=== PATIENT | male | born 1960 | race Caucasian/White ===

== ENCOUNTER 2018-10-06 11:55 | Emergency (ER) | payer BC, SELFPAY ==
[2018-10-06 12:06] VITALS: BP 128/89; PULSE 66; RESP 16; TEMP 36.6; O2SAT 96
--- NOTE | 2018-10-06 12:30 | W.ED.GENAD ---
Discharge Plan Disposition Patient Disposition: HOME Discharge Details Chief Complaint: Laceration Clinical Impression: Laceration of finger, index Primary Care Provider: Naga Guzman ED Provider: King Valdivia Home Meds and New Rx's Prescriptions: No Action No Known Home Meds RF: 0 Discharge Instructions Instructions: Finger Laceration (ED) Additional Instructions: Keep finger splint on for 5 days. Avoid getting the wound dirty or contaminated. Return to the emergency department should bleeding persist Referrals: Naga Guzman DO [Primary Care Provider] - 1 week Medical Decision Making This is a nontoxic-appearing 58-year-old male who presents with a uncomplicated left second digit laceration. Wound is well approximated and somewhat superficial. No wound dehiscence with flexion extension at the DIP joint. Area cleaned and covered with dry sterile dressing and bacitracin. Splint applied to immobilize the DIP joint. Discussed return precautions. Wound care discussed. He is stable and ready for discharge at this time HPI General Date/Time Provider Initiated Documentation: 10/06/18 12:19. HPI Narrative: Patient presents to the emergency department with a left index finger laceration with a carpet knife. Neurovascularly intact distal to the site of injury. Tetanus is unknown Related Data Home Medications Medication Instructions Recorded Confirmed Unknown [No Known Home Meds] 10/06/18 10/06/18 Allergies Allergy/AdvReac Type Severity Reaction Status Date / Time No Known Allergies Allergy Unverified 10/06/18 12:06 General Stated Complaint: Laceration ALVERTO: 4 Review of Systems Musculoskeletal Denies limited range of motion, Denies numbness, Denies radiating pain into limb, Denies stiffness and Denies tingling Neurologic Denies numbness and Denies tingling Hematologic/Lymphatic Denies easy bleeding and Denies easy bruising [facility] Family History Mother No problems noted. Social History Smoking/Tobacco Use Status: Former Tobacco Use Drug use: Never Do you feel safe at home: Yes Do you feel safe in your relationship?: Yes Exam Narrative Exam Narrative: Nontoxic-appearing alert and oriented. Appears stated age. No outward signs of distress. Examination of the left index finger reveals a linear laceration roughly 1.5 cm in length with adequate wound approximation over the distal of the second digit of the left hand. Neurovascularly intact distal to the site of injury. Full range of motion at the DIP joint. Course Vital Signs Temperature 36.6 C 10/06/18 12:06 Pulse 66 10/06/18 12:06 Respiratory Rate 16 10/06/18 12:06 Blood Pressure 128/89 10/06/18 12:06 Pulse Oximetry 96 10/06/18 12:06 Temperature 36.6 C 10/06/18 12:06 Temperature Source Temporal Artery Scan 10/06/18 12:06 Pulse 66 10/06/18 12:06 Respiratory Rate 16 10/06/18 12:06 Respiratory Effort Non-Labored 10/06/18 12:11 Blood Pressure 128/89 10/06/18 12:06 Blood Pressure Position Sitting 10/06/18 12:06 Pulse Oximetry 96 10/06/18 12:06 Oxygen Delivery Method Room Air 10/06/18 12:06 Oxygen Flow Rate 0 10/06/18 12:06 Pain Level 3 10/06/18 12:06
== END 2018-10-06 12:49 | disposition home or self-care (01) ==
PROVIDERS: Emergency Provider Physician Assistant; PCP Family Medicine
DX: S65.511A Laceration of blood vessel of left index finger, initial encounter (principal); W26.0XXA Contact with knife, initial encounter
CPT/HCPCS: 90471; 99282

== ENCOUNTER 2020-01-27 08:28 | Outpatient (REF) | payer BC, SELFPAY ==
[2020-01-27 22:58] LABS: ALT 25 U/L (16-63); AST 17 U/L (15-37); Albumin 4.1 g/dL (3.4-5.0); Alkaline Phosphatase 65 U/L (46-116); BUN 16 mg/dL (7-18); Bilirubin, Total 0.4 mg/dL (0.2-1.0); CREATININE 0.86 mg/dL (0.70-1.30); Calcium 9.2 mg/dL (8.5-10.1); Calculated LDL 120 mg/dL (<100); Chloride 103 mmol/L (98-107); Cholesterol 216 mg/dL (<200); Glucose 90 mg/dL (74-106); HDL Cholesterol 85 mg/dL (40-60); Sodium 138 mmol/L (136-145); Total Protein 6.9 g/dL (6.4-8.2); Triglyceride 57 mg/dL (<150)
[2020-01-29 16:13] LABS: PSA, Screening 1.4 ng/mL (0-4.5)
== END 2020-01-27 08:48 ==
LOC: NCHCN 08:28
PROVIDERS: Visit Provider Family Medicine
DX: Z00.00 Encounter for general adult medical examination without abnormal findings (principal)
CPT/HCPCS: 80053; 80061; 84153

== ENCOUNTER 2020-04-14 02:32 | Outpatient (CLI) | payer BC, SELFPAY ==
[2020-04-15 13:41] LABS: COVID-19 RT-PCR UVMMC Result Negative (Negative)
== END 2020-04-14 02:52 ==
PROVIDERS: PCP Family Medicine; Visit Provider Surgery
DX: Z11.52 Encounter for screening for COVID-19 (principal); Z01.818 Encounter for other preprocedural examination
CPT/HCPCS: U0003

== ENCOUNTER 2020-04-18 06:05 | Day surgery (SDC) | payer BC, SELFPAY ==
[2020-04-18 06:20] VITALS: BP 130/80; PULSE 51; RESP 16; TEMP 36.3; O2SAT 98
--- NOTE | 2020-04-18 06:31 | COLE_ITS ---
Date of service: 04/18/20 Time of Service: 07:24 Colonoscopy Report Date of procedure: 04/18/20 Pre-op diagnosis general: Colon Cancer Screening Procedure: Colonoscopy and internal hemorrhoids Surgeon: Dolly Augustine Anesthesia proc note operative: other (General/ASA 2/Mike Trejo, EMMY) Estimated blood loss (mL): 3 Pathology: none sent Complications: None Disposition: same day Indications: The patient is here for Colonoscopy pre-op. His last screening was in 2010 and was unremarkable. He has no family history of colon cancer. He has not had any bowel habit changes. 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 He would like this further evaluated during his Colonoscopy and to discuss possible treatment options. Today discussed medical management of anal fissures. -Discussed colonoscopy bowel prep as well as the procedure. Discussed possible complications of the procedure to include bleeding, pain, perforation, missed small lesion/polyp, sore throat, aspiration and adverse reaction to the medications. Questions were answered to patient?s satisfaction. No guarantees were implied or given. Prep: Miralax/Dulcolax Procedure Start Time: :24 Procedure End Time: :48 Retraction Time: 12 minutes Findings: Internal hemorrhoids grade 2 Procedure Description: After informed consent was obtained the patient was taken to the procedure room and placed in a left decubitous position. Monitors were applied and a time out was done. The patients name, date of , procedure, allergies to medications and metal in their body was reviewed. The patient was then sedated. Once sedated and comfortable a rectal exam was done. External exam was normal. Internal exam revealed a normal sphincter tone and no palpable masses. The prostate felt smooth and slightly enlarged. The scope was then introduced and retro-flexed. Grade 2 internal hemorrhoids, polyps or masses were identified on retro-flexion. The scope was then advanced to the cecum without difficulty. The ileocecal valve and appendiceal orifice were identified. The prep was good. The scope was then slowly retracted over 12 minutes back into the rectum. There were no polyps. There was no diverticulosis noted. The scope was removed. A lighted scope was placed into t he anus and 3 Grade 2 internal hemorrhoids were banded without difficulty. Once the banding was done the patient was woken up and taken back to Same day surgery in stable condition. The patient tolerated the procedure well and there were no immediate complications. Follow up: The patient should follow up in 10 years unless they develop changes in bowel habits or other new gastrointestinal complaints. Follow up in 2 weeks in the office for the banding
--- NOTE | 2020-04-18 06:32 | W.PM.DSUDISC ---
Discharge Plan Disposition Patient Disposition: HOME Condition: Good Discharge Details Reason For Visit: Colon Cancer Screening Attending Provider: Dolly Augustine Primary Care Provider: Ashtyn Watson Home Meds and New Rx's Prescriptions: New lidocaine [Anecream] 4 % cream 1 applic topical QID PRNQty: 30 RF: 1 polyethylene glycol 3350 [Miralax] 17 gram/dose powder 17 g PO DAILY PRN (Reason: constipation) Qty: 238 RF: 0 Continued saw palmetto 500 mg capsule 500 mg PO DAILY RF: 0 turmeric root extract 500 mg capsule 500 mg PO DAILY RF: 0 loteprednol etabonate [Lotemax] 0.5 % drops,suspension 1 drp ophthalmic (eye) BID RF: 0 Discontinued polyethylene glycol 3350 17 gram/dose powder 238 g PO ONCE Qty: 238 RF: 0 bisacodyl [Dulcolax (bisacodyl)] 5 mg tablet,delayed release (DR/EC) 5 mg PO ONCE Qty: 4 RF: 0 Discharge Instructions Instructions: Hemorrhoids (DC), Rubber Band Ligation (DC), Sitz Bath (DC) Additional Instructions: Findings: internal hemorrhoids- 3 of them were banded today No polyps Follow up: 2 weeks in the office to follow up on the banding 10 years for your next colonoscopy Medications: Please use a stool softener for 1 week Lidocaine ointment was called in to help with any discomfort Sitz baths and tylenol and ibuprofen Please call if you develop: fevers >101.5 Nausea or Vomiting Abdominal pain that is not transient DAY SURGERY UNIT POST ENDOSCOPY INSTRUCTIONS 1. Because there will be medication in your system for the next 24 hours, you may feel a little sleepy. Your coordination will be affected. Therefore: a. Do not drive or operate dangerous equipment for 24 hours. b. Do not drink alcohol beverages for 24 hours (not even beer). c. Plan to go home and rest for the day. 2. Generally there are no restrictions on your activity after a day or so has gone by, but you may feel a bit fatigued for a few days. 3 After you arrive home you may have a light meal and return to a normal diet as you can tolerate it without feeling sick to your stomach. 4. After surgery, you may feel pain or discomfort. This should be only transient, but if it persists please contact your doctor. 5. If there are any questions regarding the findings of your procedure, please feel free to contact your doctor. 6. If you are unable to contact your doctor with a problem, contact the hospital at [phone]. 7. Continue all your regular medications unless directed otherwise. I understand the above instructions and have no questions. Signature of Patient or Responsible Adult Escort Date/Time Name of Responsible Adult Escort Signature of Nurse Date/Time Referrals: Dolly Augustine MD [ [facility] STAFF PHYSICIAN] - Activity:: Activity as Tolerated Diet:: High Fiber Discharge Orders Discharge Orders: Discharge Order (Routine); Ordered 04/18/20 Ordered By: Dolly Augustine
[2020-04-18] MEDS: Lactated Ringers 1,000 ML 80 ML IV (06:50)
[2020-04-18 08:32] VITALS: BP 83/45; PULSE 45; RESP 16; TEMP 36.1; O2SAT 97
== END 2020-04-18 08:55 | disposition home or self-care (01) ==
PROVIDERS: PCP Family Medicine; Visit Provider Surgery
PROC: 0DJD8ZZ Inspection of Lower Intestinal Tract, Via Natural or Artificial Opening Endoscopic (ICD-10-PCS; CPT 45378; principal; 2020-04-18 07:30)
DX: Z12.11 Encounter for screening for malignant neoplasm of colon (principal); K64.1 Second degree hemorrhoids
CPT/HCPCS: 45398; J2704

== ENCOUNTER 2020-06-18 11:03 | Emergency (ER) | payer BC, SELFPAY ==
[2020-06-18 11:11] VITALS: BP 155/95; PULSE 61; RESP 16; TEMP 36.4; O2SAT 98
--- NOTE | 2020-06-18 11:28 | W.ED.GENAD ---
Discharge Plan Disposition Patient Disposition: HOME Condition: Improving Discharge Details Clinical Impression: Subconjunctival hemorrhage of right eye Primary Care Provider: Ashtyn Watson ED Provider: Blaine Mercedes Home Meds and New Rx's Prescriptions: Continued saw palmetto 500 mg capsule 500 mg PO DAILY RF: 0 turmeric root extract 500 mg capsule 500 mg PO DAILY RF: 0 loteprednol etabonate [Lotemax] 0.5 % drops,suspension 1 drp ophthalmic (eye) BID RF: 0 lidocaine [Anecream] 4 % cream 1 applic topical QID PRNQty: 30 RF: 1 polyethylene glycol 3350 [Miralax] 17 gram/dose powder 17 g PO DAILY PRN (Reason: constipation) Qty: 238 RF: 0 Discharge Instructions Instructions: Subconjunctival Hemorrhage (ED) Additional Instructions: May use artificial tears as needed for comfort. You have some mild chemosis of the eye which can be somewhat irritating and will benefit from oemt-wjm-kzkmmff antihistamine such as Claritin or Benadryl. We will ask our care management team to arrange a follow-up for you with Dr. Lamar this week for recheck. Cool compress to reduce discomfort Continue your regular medications. Return to the ER for any acute concerns. Medical Decision Making 59-year-old male who presents with right inferotemporal eye subconjunctival hemorrhage. He has a distant history of herpes ophthalmicus for which she follows closely with ophthalmology and continues to take daily steroid drops and atenolol. VA: 20/70 R, No evidence of foreign body, negative Johanna sign. Consistent with some conjunctival hemorrhage. Will ask animal care service worker to arrange a follow-up for him given his chronic eye difficulties. He may use [id number]-[id number] antihistamine given there is some chemosis, anticipate 7 to 14 days to resolution, use artificial tears as needed for comfort. HPI General Mode of arrival: ambulatory. Date/Time Provider Initiated Documentation: 06/18/20 11:04. Limitations to Documentation: no limitations. Information obtained by: patient. History of Present Illness 59 year old M presents to the emergency department with the chief complaint of Right subconjunctival hemorrhage, described as mild, Quality is described as constant, and is localized to the eyes and right. Patient reports no radiation. Patient started experiencing this minute(s) and it has been constant. No relieving factors improve symptom(s), No exacerbating factors reported . Patient notes denies headaches and nausea/vomiting. Patient did receive the following treatments prior to arrival, none Related Data Home Medications Medication Instructions Recorded Confirmed loteprednol etabonate 0.5 % eye 1 drp OPHTHALMIC (EYE) BID 02/24/20 04/18/20 drops,suspension saw palmetto 500 mg capsule 500 mg PO DAILY cap 04/01/20 04/18/20 turmeric root extract 500 mg 500 mg PO DAILY 04/01/20 04/18/20 capsule lidocaine [Anecream] 1 applic TOPICAL QID PRN #30 g 04/18/20 polyethylene glycol 3350 [Miralax] 17 g PO DAILY PRN #238 g 04/18/20 Previous Rx's Medication Instructions Recorded lidocaine [Anecream] 1 applic TOPICAL QID PRN #30 g 04/18/20 polyethylene glycol 3350 [Miralax] 17 g PO DAILY PRN #238 g 04/18/20 Allergies Allergy/AdvReac Type Severity Reaction Status Date / Time No Known Allergies Allergy Verified 06/18/20 11:13 General Stated Complaint: EyeProblem ALVERTO: 4 Review of Systems Narrative: No headache or vomiting. 6 systems reviewed and otherwise negative. No anticoagulants. 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 ([facility], [place], [place]) History of smoking 10-25 pack years Hyperplastic colon polyp Rectal bleeding Systolic murmur (01/26/14) Surgical History H/O hemorrhoidectomy (~04/18/20) Hemorrhoid banding x2 at time of colonoscopy History of mandibular surgery History of wisdom tooth extraction Hx of tonsillectomy S/P colonoscopy (~04/18/20) Family History Mother No problems noted. Father , from complications of emphysema Emphysema/COPD Brother No problems noted. Brother No problems noted. Social History (Updated 04/01/20 @ 11:23 by DIANA Edwards) Smoking/Tobacco Use Status: Current every day Tobacco Type: cigars Tobacco: How many years used: 25 Smoking risk assessment performed?: Yes Alcohol Intake: current Alcohol Intake frequency: a few times a week Drug use: Occasionally Substance use type: marijuana Adopted: No Household members: spouse Number of Children: 0 Communication Needs: None current occupation: [employer] Pets and animals: Yes Pets and animals: dog(s) Current gender identity: male What is your relationship status?: Panel score (0-1 are the most socially isolated patients): 1 What type of physical activity do you participate in: regular exercise Duration: 45-60 minutes/day Seatbelt use: always Drive intox or ride w/intox milk driver: No Working smoke detector in home: Yes Fire extinguisher in home: Yes Carbon monox detector in home: Yes Do you feel safe at home: Yes Do you feel safe in your relationship?: Yes Exam Narrative Exam Narrative: GEN: awake, alert, oriented 3. Pleasant, well groomed, interactive. HEAD: Normocephalic, atraumatic ENT: Mucous membranes moist, oropharynx unremarkable, External ear exam unremarkable EYES: PERRL, EOMI, right subconjunctiva hemorrhage with overlying chemosis inferotemporal. There is a scarlike plaque of the right eye inferonasal. Negative Johanna sign. No foreign body appreciated. Globe soft to palpation. NECK: Full ROM, no JUANA, no menigismus CHEST/RESP: No respiratory distress Neuro: Grossly normal neurologic exam, conversant, interactive. Psych: Speech fluent, thoughts congruent, affect normal Course Vital Signs Vital signs: Vital Signs Temperature 36.4 C 06/18/20 11:11 Pulse 61 06/18/20 11:11 Respiratory Rate 16 06/18/20 11:11 Blood Pressure 155/95 H 06/18/20 11:11 Pulse Oximetry 98 06/18/20 11:11 Temperature 36.4 C 06/18/20 11:11 Temperature Source Oral 06/18/20 11:11 Pulse 61 06/18/20 11:11 Respiratory Rate 16 04/03/21 11:11 Respiratory Effort 06/18/20 11:13 Blood Pressure 155/95 H 06/18/20 11:11 Blood Pressure Position Sitting 06/18/20 11:11 Pulse Oximetry 98 06/18/20 11:11 Oxygen Delivery Method Room Air 06/18/20 11:11 Oxygen Flow Rate 0 06/18/20 11:11 Pain Level 6 06/18/20 11:11
[2020-06-18] MEDS: Balanced Salt Solution 15 ML BTL OP (11:46)
[2020-06-18] MEDS: Fluorescein STRIPS 100/BOX 1 MG OP (11:47)
--- NOTE | 2020-06-18 12:54 | NUR.NOTE ---
Nursing Note: Referral faxed to [facility] (Dr. Lamar) for follow up within one week for subconjunctival hemorrhage. Demographics, referral and provider note faxed. Mamie Padilla
== END 2020-06-18 11:48 | disposition home or self-care (01) ==
PROVIDERS: Emergency Provider Emergency Medicine; PCP Family Medicine
DX: H11.31 Conjunctival hemorrhage, right eye (principal)
CPT/HCPCS: 99283; 99282

== ENCOUNTER 2020-11-29 17:43 | Outpatient (REF) | payer BC, SELFPAY ==
[2020-12-01 20:00] LABS: COVID-19 RT-PCR UVMMC Result Negative (Negative)
== END 2020-11-29 17:44 | disposition home or self-care (01) ==
LOC: NCHCN 17:43
PROVIDERS: PCP Family Medicine; Visit Provider Family Medicine
DX: Z20.822 Contact with and (suspected) exposure to COVID-19 (principal)
CPT/HCPCS: U0003

== ENCOUNTER 2020-12-05 01:28 | Outpatient (CLI) | payer BC, SELFPAY ==
--- NOTE | 2020-12-05 08:30 | DI.CT_ITS ---
Exam(s) CT NECK W EXAM: CT NECK W CLINICAL HISTORY: mass on the right side of the neck,? lipoma,m79.89. TECHNIQUE: Imaging Protocol: Axial CT angiography was performed with multi-slice acquisition and mu lti-planar and/or 3D reconstructions. CONTRAST MATERIAL: Intravenous: Omnipaque 350 Contrast volume:80 mL COMPARISON: No exams were available for comparison FINDINGS: Visualized paranasal sinuses are clear as are the mastoid air cells. Tissues nasopharynx are symmetrical. Uvula is midline. There is no obvious mass at the level of the tonsils and oropharynx. Hypopharynx appears unremarkable. Valleculae unremarkable. Epiglottis unr emarkable. Aryepiglottic folds appear symmetrical. There is no mass at the level of the vocal cords and subglottic airway. Thyroid unremarkable. Parotid and submandibular glands appear on remarkable. Lymph nodes: No obvious prominent lymphadenopathy on either side of the neck. Vascular: No obvious tight stenosis at the carotid bifurcations and proximal internal carotid arterie s. No thrombosis of the internal jugular veins. Supraclavicular regions: No mass nor lymphadenopathy in left supraclavicular region. On the right side there is a large fat density mass in the supraclavicular region and extending behin d the neck, measuring approximately 9 cm AP by 4 cm wide by 8 cm craniocaudal. This has the appearan ce of a large lipoma. Contains thin septae A. No large mural nodules. No osseous destruction. IMPRESSION: 1. There is a large predominantly fatty mass in the right supraclavicular region measurements as desc ribed above. This is predominantly intermuscular and relatively well-defined. Nevertheless, despite the fact that it does not assess obvious solid components, cannot exclude the possibility of liposar coma given its large size and surgical consultation is recommended for biopsy/resection. RADIATION DOSE DELIVERED: 450.95mGy.cm Total DLP DATA REPOSITORY: All CT scans at this facility are submitted to the National Radiology Data Registry (NRDR) Dose Index Registry (DIR) with the [employer] (ACR). RADIATION OPTIMIZATION: All CT scans at this facility use at least one of these dose optimization te chniques: automated exposure control; mA and/or kV adjustment per patient size (includes targeted exa ms where dose is matched to clinical indication); or iterative reconstruction.
[2020-12-05 11:20] LABS: CREATININE 0.8 mg/dL (0.70-1.30)
[2020-12-05] MEDS: Omnipaque 350 MG/ML 100 ML BTL IJ (11:50)
[2020-12-05] MEDS: Normal Saline Flush 10 ML SYR IVP (11:51)
== END 2020-12-05 01:48 ==
PROVIDERS: PCP Family Medicine; Visit Provider Surgery
DX: R22.1 Localized swelling, mass and lump, neck (principal); M79.89 Other specified soft tissue disorders; Z01.818 Encounter for other preprocedural examination
CPT/HCPCS: 70491; 82565; J3490

== ENCOUNTER 2021-01-03 02:27 | Outpatient (CLI) | payer BC, SELFPAY ==
[2021-01-03 10:14] LABS: Source Nasal/Nares
[2021-01-03 13:55] LABS: COVID-19 PCR Negative (Negative)
== END 2021-01-03 02:28 | disposition home or self-care (01) ==
LOC: LBO 02:27
PROVIDERS: PCP Family Medicine; Visit Provider Surgery
DX: Z20.822 Contact with and (suspected) exposure to COVID-19 (principal); Z01.818 Encounter for other preprocedural examination
CPT/HCPCS: 87635

== ENCOUNTER 2021-01-04 08:24 | Day surgery (SDC) | payer BC, SELFPAY ==
[2021-01-04] VITALS (7 sets, daily range): BP systolic 85–140; BP diastolic 49–91; PULSE 47–65; RESP 12–18; TEMP 36–36.4; O2SAT 95–100; BMI 26.9
--- NOTE | 2021-01-04 06:34 | HPE_ITS ---
Date of service: 01/04/21 Time of Service: 09:06 Assessment and Plan Assessment and plan (1) Lipoma: Status: Acute Assessment and plan: Right neck soft tissue mass. MRI was consistent with lipoma Risks, benefits were reviewed. Complications include but are not limited to bleeding, pain, infection, injury to muscles, nerves or vessels, wound dehisence and recurrence. Questions were entertained and answered to his satisfaction and he wished to proceed. No guarantees were given or implied. Qualifiers: Lipoma location: neck Qualified Code(s): D17.0 - Benign lipomatous neoplasm of skin and subcutaneous tissue of head, face and neck History of Present Illness Narrative: Nestor is back to see me today for a lesion on his right neck. He tells me that he really had not noticed it until Dr. Davis pointed it out. It does not cause him any pain. He does feel that there is an abnormality when he tries to wear a tie. He has no decrease of range of motion in his neck. He denies any swallowing issues. MRI was done and was consistent with lipoma. Review of Systems Cardiovascular Cardiovascular: Denies chest pain, Denies chest pain at rest, Denies irregular heart rhythm, Denies dyspnea and Denies dyspnea on exertion Respiratory Respiratory: Denies cough, Denies dyspnea and Denies dyspnea on exertion Gastrointestinal Gastrointestinal: Reports as per HPI Genitourinary Genitourinary: Denies dysuria, Denies urinary incontinence and Denies urinary urgency Musculoskeletal Musculoskeletal: Reports system reviewed and no additional complaints, except as documented and Reports as per HPI Endocrine Endocrine: Reports system reviewed and no additional complaints, except as documented Hematologic/Lymphatic Hematologic/Lymphatic: Denies easy bruising and Denies lymphadenopathy [facility] Medical History Vcsap-3-fkusydjskme 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 ([facility], [place], [place]) History of smoking 10-25 pack years Hyperplastic colon polyp Lipoma Rectal bleeding Sebaceous cyst Systolic murmur (01/26/14) Surgical History H/O hemorrhoidectomy (~04/18/20) Hemorrhoid banding x2 at time of colonoscopy History of mandibular surgery History of wisdom tooth extraction Hx of tonsillectomy S/P colonoscopy (~04/18/20) Family History Mother No problems noted. Father , from complications of emphysema Emphysema/COPD Brother No problems noted. Brother No problems noted. Social History Smoking/Tobacco Use Status: Current every day Tobacco Type: cigars Tobacco: How many years used: 25 Smoking risk assessment performed?: Yes Alcohol Intake: current Alcohol Intake frequency: a few times a week Drug use: Occasionally Substance use type: marijuana Adopted: No Household members: spouse Number of Children: 0 Communication Needs: None current occupation: [employer] Pets and animals: Yes Pets and animals: dog(s) Current gender identity: male What is your relationship status?: Panel score (0-1 are the most socially isolated patients): 1 What type of physical activity do you participate in: regular exercise Duration: 45-60 minutes/day Seatbelt use: always Drive intox or ride w/intox ambulance driver paramedic: No Working smoke detector in home: Yes Fire extinguisher in home: Yes Carbon monox detector in home: Yes Do you feel safe at home: Yes Additional Social history: Unable to assess [facility] Allergies and Home Medications Allergies Allergy/AdvReac Type Severity Reaction Status Date / Time No Known Allergies Allergy Verified 01/04/21 08:38 Home Medications Medication Instructions Recorded Confirmed Type loteprednol etabonate 0.5 % eye 1 drp OPHTHALMIC (EYE) BID 02/24/20 01/04/21 History drops,suspension brimonidine 0.1 % eye drops 1 drp OPHTHALMIC (EYE) Q8H 11/04/20 01/04/21 History dorzolamide-timolol (PF) 2 %-0.5 % 1 drp OPHTHALMIC (EYE) DAILY ea 11/04/20 01/04/21 History eye drops in a dropperette valacyclovir 500 mg tablet 500 mg PO BID 11/04/20 01/04/21 History Exam Const General: healthy appearing and comfortable Neck Other: Right base of the neck- there is a 10 x 8 cm soft mass. I can feel the edge of it in the back but not the from. It looks like it goes up to the clavicle and up half way to his mandible. It is not tender Resp Effort & Inspection: normal respiratory effort Auscultation: clear to auscultation bilaterally Cardio Rate: regular rate Rhythm: regular rhythm Heart Sounds: no click, no gallops and no murmurs
--- NOTE | 2021-01-04 06:41 | ROE_ITS ---
Date of service: 01/04/21 Time of Service: 11:23 Operative Note Operative Note DATE OF PROCEDURE: 01/04/21 PRE-OP DIAGNOSIS: Right neck lipoma POST-OP DIAGNOSIS: same PROCEDURE: Excision of neck lipoma SURGEON: Dolly Augustine FIRER WATERTENDER: Jeny Brown ANESTHESIA TYPE: General:No Airway (Julita Elliott CRNA) Refer to Anesthesia Record ESTIMATED BLOOD LOSS: 25 PATHOLOGY: other (lipoma) COMPLICATIONS: None Patient was transported to: PACU Patient's condition: stable Indications: Right neck soft tissue mass. MRI was consistent with lipoma Risks, benefits were reviewed. Complications include but are not limited to bleeding, pain, infection, injury to muscles, nerves or vessels, wound dehisence and recurrence. Questions were entertained and answered to his satisfaction and he wished to proceed. No guarantees were given or implied. Procedure Description: After informed consent was obtained the patient was taken to the Operating room and placed in a supine position. Monitors were applied and a time out was done. The patients name, , allergies to medications, antibiotic prophilaxis, DVT prophilaxis, procedure to be done and site were reviewed. Fire risk was assessed. The patient was then placed under general anesthesia and intubated without difficulty. Next the right shoulder, neck and chest wall were prepped and draped in a standard fashion. 0.25% Bupivocaine mixed with Exparel was injected into the dermis over the palpable lipoma. The incision was made with a 15 blade. The lipoma was then dissected bluntly inferiorly. The inferior portion of the lipoma was pulled out of the incision without difficulty. Using cautery and blunt dissection the superior portion was dissected as well as the medial end. The lipoma was attached posteriorly behind the posterior head of the sternocleidomastoid muscle. Using blunt dissection and sharp dissection with iris scissors it was gently dissected from under the muscle. Once dissected all the way it was marked with a single suture inferiorly and with a double suture medially. The lipoma measured 12 x 8 cm. The cavity was irrigated. There was some small amount of bleeding and this was stopped with cautery and vascular clips. Once the cavity was dry floseal was placed into the cavity to help with hemostasis. Next the subcutaneous tissue was re-approximated with interrupted 2-0 vicryl. The Dermis was closed with a running 4-0 vicryl. The skin was cleaned and dried and a skin affix was applied. The patient was woken up and extubated. He was taken to PACU in stable condition. Instrument, sponge and needle counts were correct at the end of the case. The patient did well and there were no immediate complications.
--- NOTE | 2021-01-04 06:43 | W.PM.DSUDISC ---
Discharge Plan Disposition Patient Disposition: HOME Condition: Good Discharge Details Reason For Visit: excision of lipoma Attending Provider: Dolly Augustine Primary Care Provider: Ashtyn Watson Home Meds and New Rx's Prescriptions: Continued loteprednol etabonate [Lotemax] 0.5 % drops,suspension 1 drp ophthalmic (eye) BID RF: 0 valacyclovir 500 mg tablet 500 mg PO BID RF: 0 Alphagan P 0.1 % drops 1 drp ophthalmic (eye) Q8H RF: 0 dorzolamide-timolol (PF) 2-0.5 % dropperette 1 drp ophthalmic (eye) DAILY RF: 0 Discharge Instructions Additional Instructions: Activity at Home after surgery: 1. Make sure you walk outside at least 4 times per day 2. You should be able to climb a flight of stairs 3. No driving while in pain or taking pain medications 4. No strenuous activity 4 weeks (open surgery) Diet, Nutrition, & wound healin. Avoid alcohol until after you are recovered from your surgery 2. Make sure to eat plenty of lean protein (meat, fish, eggs, cottage cheese, beans) 3. Eat a variety of fruits and vegetables. Eat plenty of high fiber foods to avoid constipation. 4. Drink plenty of liquids to stay hydrated and avoid constipation Pain Medications: 1. Tylenol 650mg every 6 hours as needed and Ibuprofen 600 mg every 6 hours as needed. You may alternate between the 2 medications every 3 hours 2. If a narcotic has been prescribed take as directed only for breakthrough pain For Constipation: 1. Take Milk of Magnesia or MiraLax as needed for constipation Other: 1. You may shower daily. Do not scrub the incisions 2. Do not soak the incisions for 1 week 3. You may alternate ice and heat as needed for pain and swelling Wound Care: 1. Keep the incisions clean and dry Please call our office if you develop: 1. Fevers >101.5 2. Nausea or Vomiting 3. Worsening pain 4. Redness and thick discharge from the wounds If after hours please call the Hospital at and ask to speak to the on-call surgeon Referrals: Dolly Augustine MD [ [facility] STAFF PHYSICIAN] - 01/17/21 8:30 am Activity:: Activity as Tolerated Remove Dressings/Wound Care:: Do Not Remove Shower/Bathe:: 24 hours Diet:: As Tolerated Discharge Orders Discharge Orders: Discharge Order (Routine); Ordered 01/04/21 Ordered By: Dolly Augustine DS: Diagnosis Discharge Diagnosis (1) Lipoma: Status: Acute
[2021-01-04] MEDS: Lactated Ringers 1,000 ML 80 ML IV (08:55)
[2021-01-04] MEDS: Celecoxib 200 MG CAP PO (09:34)
[2021-01-04] MEDS: Acetaminophen 500 MG TAB 1000 MG PO (09:35)
--- NOTE | 2021-01-04 10:13 | W.ANESPRE ---
General Info Date of Service Date Performed: 01/04/21 Height: 5 ft 11 in Weight: 87.5 kg Body Mass Index (BMI): 26.9 Surgical Procedure: Operation Date: 01/04/21 11:25 Proposed Procedures Side Surgeon p Excision Lipoma RT SUPRACLAVICULAR Right Dolly Augustine MD Meds Allergies and Home Medications Allergies Allergy/AdvReac Type Severity Reaction Status Date / Time No Known Allergies Allergy Verified 01/04/21 08:38 Home Medication Medication Instructions Recorded loteprednol etabonate 0.5 % eye 1 drp OPHTHALMIC (EYE) BID 02/24/20 drops,suspension brimonidine 0.1 % eye drops 1 drp OPHTHALMIC (EYE) Q8H 11/04/20 dorzolamide-timolol (PF) 2 %-0.5 % 1 drp OPHTHALMIC (EYE) DAILY ea 11/04/20 eye drops in a dropperette valacyclovir 500 mg tablet 500 mg PO BID 11/04/20 Current Visit Medications: Current Medications Generic Name Dose Route Start Last Admin Trade Name Freq PRN Reason Stop Dose Admin Acetaminophen 1,000 mg 01/04/21 06:00 01/04/21 09:35 Acetaminophen 500 Mg Tab PO 02/02/21 23:59 1,000 mg PREOP ELLEN Administration Celecoxib 200 mg 01/04/21 06:00 01/04/21 09:34 Celecoxib 200 Mg Cap PO 02/02/21 23:59 200 mg PREOP ELLEN Administration Ringer's Solution 1,000 mls @ 80 mls/hr 01/04/21 06:00 01/04/21 08:55 IV 02/02/21 23:59 80 mls/hr INFUSION ELLEN Administration Cefazolin Sodium/Dextrose 2 gm in 50 mls @ 100 mls/hr 01/04/21 06:00 Ancef Duplex IVPB 02/02/21 23:59 PREOP ELLEN Ondansetron HCl 4 mg/ Sodium 52 mls @ 200 mls/hr 01/04/21 06:44 Chloride IVPB Q6H PRN PRN Promethazine HCl 12.5 mg/ 50.5 mls @ 200 mls/hr 01/04/21 06:44 Sodium Chloride IVPB Q4H PRN PRN IV Miscellaneous Supplies 1 each 01/04/21 06:00 Iv Access IV 02/02/21 23:59 DIRECTED ELLEN Ibuprofen 600 mg 01/04/21 06:44 Ibuprofen 600 Mg Tab PO Q6H PRN PRN Pain Sodium Chloride 0 ml 01/04/21 06:00 Normal Saline Flush 10 Ml Syr IV 02/02/21 23:59 PRN PRN Sodium Chloride 0 ml 01/04/21 06:00 Normal Saline 10 Ml Vial IJ 02/02/21 23:59 DIRECTED PRN Sterile Water 0 ml 01/04/21 06:00 Water,Injection,Sterile 10 Ml Vial IJ 02/02/21 23:59 DIRECTED PRN Tramadol HCl 50 mg 01/04/21 06:44 Tramadol 50 Mg Tab PO Q6H PRN PRN Pain PFSH Active Problems Active Problems: Problem Status Onset Code Lipoma D17.9 Subconjunctival hemorrhage of right eye H11.31 Osteoarthritis of left knee M17.12 History of smoking 10-25 pack years Z87.891 BPH loc w urin obs/LUTS N40.1 Medical History Medical History 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 ([facility], [place], [place]) History of smoking 10-25 pack years Hyperplastic colon polyp Lipoma Rectal bleeding Sebaceous cyst Systolic murmur (01/26/14) Surgical History Surgical History H/O hemorrhoidectomy (~04/18/20) Hemorrhoid banding x2 at time of colonoscopy History of mandibular surgery History of wisdom tooth extraction Hx of tonsillectomy S/P colonoscopy (~04/18/20) Tobacco Smoking/Tobacco Use Status: Current every day Tobacco Type: cigars Tobacco: How many years used: 25 Alcohol Alcohol Intake: current Alcohol intake frequency: a few times a week Substance Use Substance use: Occasionally Substance use type: marijuana Vital Signs and Lab Results Vital Signs Most Recent Vital Signs in EMR: Most Recent Vital Signs Temp Pulse Resp BP Pulse Ox 36.2 C L 65 18 140/91 H 99 01/04/21 08:25 01/04/21 08:25 01/04/21 08:25 01/04/21 08:25 01/04/21 08:25 Lab Results Blood Type / Crossmatch: No Data to Display Complete Blood Count: No Data to Display Complete Metabolic Panel: No Data to Display Liver Function Panel: No Data to Display Coagulation Panel: No Data to Display Cardiac Panel: No Data to Display Arterial Blood Gas: No Data to Display Venous Blood Gas: No Data to Display Pancreas Panel: No Data to Display Thyroid Panel: No Data to Display Infectious Disease: Coronavirus (COVID-19)(PCR) Negative (Negative) 01/03/21 08:31 01/03/21 Coronavirus 2019 Source Nasal/Nares 01/03/21 08:31 01/03/21 Blood Cultures: No Data to Display Toxicology Panel: No Data to Display Imaging and Studies Imaging and Studies Echocardiogram Summary: FINDINGS: LEFT VENTRICLE/LVEF: Left ventricle normal size and wall thickness. Normal systolic function. EF 60 to 65%. No regional wall motion abnormalities. RIGHT VENTRICLE: Normal size and function. AORTIC VALVE: Trileaflet. No regurgitation or stenosis. MITRAL VALVE: Structurally normal. Trivial regurgitation. No stenosis. TRICUSPID VALVE: Structurally normal. Trivial regurgitation. No stenosis. RSV/PA/RIGHT ATRIAL PRESSURE: Pulmonary artery systolic pressure normal, 25 to 30 mmHg. i PULMONIC VALVE: Structurally normal. No regurgitation or stenosis. ATRIA: Left atrium at the upper limits of normal. Right atrium mildly enlarged. DIASTOLIC INDICES: Normal for age. GREAT VESSELS: Aorta normal size. INFERIOR VENA CAVA: IVC normal size and collapses more than 50% with inspiration. PERICARDIUM: No effusion. SUMMARY: CONCLUSION: Normal biventricular size and function. No significant valvular heart disease. 04/21/14 Pulmonary Function Summary: INTERPRETATION SPIROMETRY: Spirometry shows no evidence of obstructive airways disease. No bronchodilator testing was carried out. LUNG VOLUMES: Lung volumes show no evidence of restriction. DIFFUSION CAPACITY: Normal. AIRWAY RESISTANCE: Normal. IMPRESSION: Normal pulmonary function study. 11/26/12 Anesthesia Assessment and Plan Anesthesia History Personal History: No History of Anesthesia Complications Family History: No Family History of Anesthesia Complications Exercise Tolerance Exercise Tolerance: Metabolic Equivalents>4 Pertinent Negatives Pertinent Negatives: No Symptoms of GERD, No Major Cardiovascular Symptoms or Complaints, No Major Pulmonary Symptoms or Complaints and No History of CVA/TIA Cardiac & Pulmonary Exam Cardiac Exam: Normal S1/S2 Heart Sounds Pulmonary Exam: Clear Bilateral Breath Sounds Airway Exam Known Difficult Airway: No Mallampati Class: 1 Mouth Opening: Normal (> 3cm) Thyromental Distance: Greater than 3 cm Neck Range of Motion: Full ROM Neck Circumference: Normal Teeth Condition: Normal Dentition ASA Classification ASA Score: ASA 2 Emergency Case?: No NPO Status NPO Status: NPO Clears >2 hours, Solids >8 hours Anesthesia Plan Resuscitation Status: Full Code Anesthesia Technique: General Anesthesia Airway Planned: Endotracheal Tube Monitors Used: Standard Monitors
[2021-01-04] MEDS: ceFAZolin 2 GM/50 ML BAG IVPB (11:20)
--- NOTE | 2021-01-04 11:57 | SOFT_PTH ---
PATIENT: Nestor Arndt LOC: [facility] U#:[id number] AGE/SX: 60/M ROOM: RE01/04/[address]: Dolly Augustine MD : [id number] BED: DIS: 01/04/2021 SPEC #: [id number] RECD: 01/04/21 12:56 STATUS: BLAIR REChris #: [id number] BYRON: 01/04/21 11:[address]: Dolly Augustine DEPT: Surgical Specimen RECD BY: Viktoria Ferreira ENTERED: 01/04/21 12:56 SP TYPE: SOFT OTHR DR: Ashtyn Watson Tissues: 1 - SOFT TISSUE MISC (INC. LIPOMA) Procedures: GROSS AND MICRO LEVEL 3 Comments: [id number]
[2021-01-04] MEDS: Bupivacaine 0.25% Pres-Free 30 ML VIAL (12:08)
--- NOTE | 2021-01-04 13:50 | W.ANESPOSTOP ---
Postoperative Evaluation Date, Time and Location Date Performed: 01/04/21 Time Performed: 13:50 Patient Location: Day Surgery Unit Vital Signs Most Recent Imported Vital Signs: Most Recent Vital Signs Temp Pulse Resp BP Pulse Ox 36.4 C L 47 L 16 119/82 100 01/04/21 13:20 01/04/21 13:47 01/04/21 13:47 01/04/21 13:47 01/04/21 13:47 Pain Score Most Recent Pain Score: Most Recent Pain Score Pain Level 0 01/04/21 13:47 Assessment Mental Status: Awake (Alert & Oriented to Patient Baseline) Airway and Respiratory Function: Patent airway with normal (patient baseline) respiratory exam Cardiovascular Function: Hemodynamically Stable Hydration Status: Adequately Hydrated Nausea & Vomiting: No Nausea or Vomiting Pain: Pt. Denies Any Pain Peripheral Nerve Block: Patient did not receive a nerve block
== END 2021-01-04 14:15 | disposition home or self-care (01) ==
LOC: SUR 08:24
PROVIDERS: PCP Family Medicine; Visit Provider Surgery
PROC: (CPT 21554; principal; 2021-01-04 11:15)
DX: D17.0 Benign lipomatous neoplasm of skin and subcutaneous tissue of head, face and neck (principal); E88.01 Alpha-1-antitrypsin deficiency; N40.1 Benign prostatic hyperplasia with lower urinary tract symptoms; F17.290 Nicotine dependence, other tobacco product, uncomplicated
CPT/HCPCS: 21554; 88304; J0690; J1100; J1885; J2001; J2405; J2704

== ENCOUNTER 2021-06-28 16:19 | Outpatient (REF) | payer BC, SELFPAY | END 2021-06-28 16:20 | disposition home or self-care (01) | LOC: NCHCN 16:19 | PROVIDERS: PCP Family Medicine; Visit Provider Family Medicine | DX: R30.0 Dysuria (principal) | CPT/HCPCS: 87086 ==

== ENCOUNTER 2021-07-03 13:44 | Outpatient (REF) | payer BC, SELFPAY ==
[2021-07-03 22:08] LABS: PSA, Screening 1.2 ng/mL (<=4.5)
== END 2021-07-03 13:45 | disposition home or self-care (01) ==
LOC: NCHCN 13:44
PROVIDERS: PCP Family Medicine; Visit Provider Family Medicine
DX: N40.1 Benign prostatic hyperplasia with lower urinary tract symptoms (principal); Z12.5 Encounter for screening for malignant neoplasm of prostate
CPT/HCPCS: 84153

== ENCOUNTER 2021-07-21 22:50 | Outpatient (REF) | payer BC, SELFPAY | END 2021-07-21 22:51 | disposition home or self-care (01) | LOC: NCHCN 22:50 | PROVIDERS: PCP Family Medicine; Visit Provider Family Medicine | DX: R30.0 Dysuria (principal) | CPT/HCPCS: 87086 ==

== ENCOUNTER 2021-08-30 19:15 | Outpatient (REF) | payer BC, SELFPAY | END 2021-08-30 19:16 | disposition home or self-care (01) | LOC: NCHCN 19:15 | PROVIDERS: PCP Family Medicine; Visit Provider Family Medicine | DX: R30.0 Dysuria (principal) | CPT/HCPCS: 87086 ==

== ENCOUNTER 2021-10-16 11:40 | Outpatient (CLI) | payer BC, SELFPAY ==
--- NOTE | 2021-10-16 11:38 | DI.RAD_ITS ---
Exam(s) XR KNEE LT 3V AP,LAT,CHARLES EXAM: XR KNEE LT 3V AP,LAT,CHARLES CLINICAL HISTORY: eval L knee pain TECHNIQUE: COMPARISON: CR XR KNEE RT 3V AP,LAT,CHARLES from 10/16/2021 FINDINGS: Four views were obtained. There is severe narrowing of the cartilaginous joint space of the medial t ibiofemoral joint. There also appears to be some loss of the cartilaginous joint space of the patell ofemoral joint. There is a probable small joint effusion. There are mild marginal osteophytes at th e medial tibiofemoral joint and patellofemoral joint. No other significant bony or soft tissue abnor mality seen. IMPRESSION: Severe DJD medial tibiofemoral joint. Degenerative changes also noted involving patellofemoral joint as described above. RADIATION DOSE DELIVERED: Total DLP
--- NOTE | 2021-10-16 11:38 | DI.RAD_ITS ---
Exam(s) XR KNEE RT 3V AP,LAT,CHARLES EXAM: XR KNEE RT 3V AP,LAT,CHARLES CLINICAL HISTORY: eval R knee pain TECHNIQUE: COMPARISON: No exams were available for comparison FINDINGS: Three views were obtained. There is mild narrowing of medial tibiofemoral cartilaginous joint space. There may be a small knee joint effusion. No other bony or soft tissue abnormality seen. IMPRESSION: Mild joint space narrowing medial tibiofemoral joint which may be on a degenerative basis. RADIATION DOSE DELIVERED: Total DLP
--- NOTE | 2021-10-16 11:38 | DI.RAD_ITS ---
Exam(s) XR FOOT LT COMPLETE EXAM: XR FOOT LT COMPLETE CLINICAL HISTORY: eval L 1st MTP pain TECHNIQUE: COMPARISON: No exams were available for comparison FINDINGS: Three views were obtained. There is mild tilley articular degenerative change of the joints of the foot most marked involving the IP joints and the 1st MTP joint. No other bony or soft tissue abnormality seen. No abnormality of alignment seen. IMPRESSION: Mild DJD of the IP joints and 1st MTP joint. RADIATION DOSE DELIVERED: Total DLP
== END 2021-10-16 11:41 | disposition home or self-care (01) ==
LOC: DIORS 11:40
PROVIDERS: PCP Family Medicine; Referring Provider Family Medicine; Visit Provider Student in an Organized Health Care Education/Training Program
DX: M17.12 Unilateral primary osteoarthritis, left knee; M20.22 Hallux rigidus, left foot; M19.072 Primary osteoarthritis, left ankle and foot
CPT/HCPCS: 73562; 73630

== ENCOUNTER 2022-10-19 11:07 | Outpatient (CLI) | payer BC, SELFPAY ==
--- NOTE | 2022-10-19 11:32 | DI.RAD_ITS ---
Exam(s) XR KNEE RT 1V XR STANDING ALIGNMENT EXAM: XR STANDING ALIGNMENT CLINICAL HISTORY: L KNEE OA. TECHNIQUE: 2D digital imaging was performed. Standing AP views were performed from the pelvis throu gh the ankles. AP view of the right knee. COMPARISON: CR XR KNEE RT 3V AP,LAT,CHARLES from 10/16/2021 CR XR KNEE LT 3V AP,LAT,CHARLES from 10/16/2021 CR XR KNEE RT 1V from 10/19/2022 FINDINGS: BONES: No acute fracture is present. No bony destructive lesion is seen. Leg length discrepancy: No significant leg length discrepancy. JOINTS: Knees: Severe narrowing medial femoral tibial joint space left knee with mild varus angulatio n. Mild narrowing of the medial femoral tibial joint space of the right knee. The ankle joints are unremarkable. The hip joints are unremarkable. SOFT TISSUE: Normal. IMPRESSION: Severe degenerative changes medial femoral tibial joint space of the left knee.. No significant leg length discrepancy. DATA REPOSITORY: RADIATION DOSE DELIVERED:
== END 2022-10-19 11:08 | disposition home or self-care (01) ==
LOC: DIORS 11:07
PROVIDERS: PCP Family Medicine; Referring Provider Family Medicine; Visit Provider Student in an Organized Health Care Education/Training Program
DX: M17.12 Unilateral primary osteoarthritis, left knee; M25.561 Pain in right knee
CPT/HCPCS: 73560; 77073

== ENCOUNTER → 2022-11-29 13:31 | Outpatient (CLI) | payer BC, SELFPAY ==
--- NOTE | 2022-11-29 11:15 | DI.US_ITS ---
APPROVED REPORT EXAM: Comprehensive 2D, Doppler, and color-flow Echocardiogram Patient Location: Out-Patient Tube Machine Operator Helper: Diana Mcallister RDCS (AE) Indications: Surgical clearance, Cardiac Murmur Other Information Study Quality: Adequate Conclusion Normal left ventricular wall thickness and chamber size. Ejection fraction is normal. There are no segmental wall motion abnormalities. Diastolic function is normal for age Normal right ventricular size and function Both atria are normal in size Aortic valve is mildly sclerotic and trileaflet with trace regurgitation. There is no aortic stenosi s Estimated right ventricular systolic pressure is 25 mmHg Mildly dilated ascending aorta 3.67 cm Wall motion Left Ventricle The left ventricle is normal size. The left ventricular systolic function is normal. The left ventric ular ejection fraction is within the normal range. There is normal left ventricular wall thickness. T here is normal LV segmental wall motion. There is no ventricular septal defect visualized. LVEF is 59 %. Right Ventricle The right ventricle is normal size. The right ventricular systolic function is normal. Atria The left atrium size is normal. The right atrium size is normal. The interatrial septum is intact wit h no evidence for an atrial septal defect. Aortic Valve Aortic valve is mildly sclerotic and trileaflet No hemodynamically significant valvular aortic steno sis. Trace aortic regurgitation. Mitral Valve The mitral valve is normal in structure. No evidence of mitral valve stenosis. Trace mitral regurgita tion. Tricuspid Valve The tricuspid valve is normal in structure. There is no tricuspid valve stenosis. Trace tricuspid reg urgitation. The RVSP is 24.6 mmHg. Pulmonic Valve The pulmonary valve is normal in structure. There is no pulmonic valvular stenosis. There is no pulmo danny valvular regurgitation. Great Vessels The aortic root is normal in size. The ascending aorta is mildly dilated. Aortic arch is not well vis ualized. IVC is normal in size and collapses >50% with inspiration. Pericardium There is no pericardial effusion. 2D Dimensions IVSD d PLAX 0.86 cm M: 0.6-1.2 Ao Root d 3.18 cm M: 3.1 - 3.7 LVPW d PLAX 0.95 cm M: 0.6 - 1.2 Ao Asc Diam d 3.67 cm M: 2.6 - 3.4 LVID d PLAX 5.13 cm M: 4.2 - 5.8 LVDs 3.34 cm M: 2.5 - 4.0 LV EF Teichholz 63.8 % FS 34.90 % LV EDV (Teich) 125.6 mL LV ESV (Teich) 45.5 mL Stroke Vol Index (Teich) 38.52 M-Mode TAPSE 2.55 cm (M/F) >1.7 Auto EF LV EDV A4C 120.4 mL LV EDV A2C 134.5 mL LV EDV BP 127.3 mL LV ESV A4C 50.3 mL LV ESV A2C 55.5 mL LV ESV BP 52.2 mL LVEF(%) A4C 58.2 % LVEF(%) A2C 58.8 % LVEF(%) BP 59.0 % LV SV A4C 70.1 ml LV SV A2C 79.0 ml LV SV BP 75.1 ml LV CO A4C 3.5 L/min LV CO A2C 3.7 L/min LV CO BP 3.6 L/min HR A4C 50.00 BPM HR A2C 46.34 BPM LV EDV Index (BP) LA Volume LA Length A4C 5.2 cm LA Length A2C 5.4 cm LA Area A4C s 16.20 cm2 LA Area A2C s 15.73 cm2 LA Vol A4C A-L 42.49 mL LA Vol A2C A-L 38.66 mL LA Vol Biplane A-L 41.3 mL LA Vol/BSA A4C A-L LA Vol/BSA A2C A-L LA Vol/BSA BP A-L 19.8 mL/m2 LA Vol A4C MOD 38.9 mL LA Vol A2C MOD 36.5 mL LA Vol BP MOD 38.1 mL RA Volume RA Area A4C 16.5 cm2 RA ESV A4C (A-L) 42.3mL RA Vol/BSA A4C A-L RA Length A4C 5.5 cm RA ESV A4C (MOD) 41.0mL LV Diastology MV E' medial 0.063 (>0.07 m/s) MV E Vmax 0.61 (0.4-1.3 m/s) MV E/E' MED 9.78 (<14) MV A Vmax 0.80 (0.4-1.3 m/s) MV E' lateral 0.099 (>0.1 m/s) E/A Ratio 0.8 MV E/E' LAT 6.24 (<14) MV E' Average 0.081 m/s MV E/E'(average) 7.62 Aortic Valve AoV Vmax 2.43 m/s LVOT Vmax 1.15 m/s AoV Peak Grad 23.7 mmHg LVOT Peak Grad 5.3 mmHg AoV Area (Vmax) 1.51 cm2 LVOT VTI 0.258 m AoV VTI 0.563 m LVOT Mean Grad 2.9 mmHg AoV Mean Dano. 1.68 m/s LVOT SV 83.00 mL AoV Mean Grad 12.8 mmHg LVOT Diam s 2.00 cm AoV Area (VTI) 1.47 cm2 Velocity Ratio 0.47 Mitral Valve MV DT 279 (160-240 msec) MV Vmax TIPS 0.82 m/s MV Mean Grad 0.9 (<2mmHg) MV VTI 0.301 m Pulmonary Valve PV Vmax 0.99 (0.5-1.5 m/s) RVOT Vmax 0.86 m/s PV Peak Grad 4.0 mmHg RVOT Peak Gr. 3.0 mmHg PV Mean Dano 0.66 m/s RVOT VTI 0.195 m PV Mean Grad 2.1 mmHg RVOT Mean Gr. 1.4 mmHg Tricuspid Valve RA Pressure 3.00 mmHg TR Vmax 2.33 m/s TV S' 0.14 m/s TR Peak Grad 21.6 mmHg RVSP (TR) 24.6 mmHg
== END ==
PROVIDERS: PCP Family Medicine; Visit Provider Student in an Organized Health Care Education/Training Program
DX: R01.1 Cardiac murmur, unspecified (principal)
CPT/HCPCS: 93306

== ENCOUNTER 2022-11-30 03:47 | Outpatient (CLI) | payer BC, SELFPAY ==
[2022-11-30 11:45] LABS: HCT 41.2 % (40.0-50.0); HGB 14.5 g/dL (13.5-17.5); MCH 34.1 pg (27.0-33.0); MCHC 35.2 % (32.0-36.0); MCV 97 fL (80-95); Platelet Count 249 10^3/uL (130-400); RBC 4.25 10^6/uL (4.36-5.78); RDW 11.5 % (11.8-14.1); RDW-SD 41.1 fL; WBC 4.71 10^3/uL (4.4-10.8)
[2022-11-30 12:14] LABS: Anion Gap 3.6 mmol/L (3-11); BUN 20 mg/dL (7-18); CO2 29.4 mmol/L (21.0-32.0); CREATININE 0.9 mg/dL (0.70-1.30); Calcium 9.4 mg/dL (8.5-10.1); Chloride 105 mmol/L (98-107); Estimated GFR 95.37 (mL/min/1.73m2); Glucose 103 mg/dL (74-106); Sodium 138 mmol/L (136-145)
== END 2022-11-30 03:48 | disposition home or self-care (01) ==
LOC: LBO 03:47
PROVIDERS: PCP Family Medicine; Visit Provider Student in an Organized Health Care Education/Training Program
DX: M25.562 Pain in left knee (principal); M17.12 Unilateral primary osteoarthritis, left knee; Z01.818 Encounter for other preprocedural examination; Z01.812 Encounter for preprocedural laboratory examination
CPT/HCPCS: 36415; 80048; 85027

== ENCOUNTER 2022-11-30 10:15 | Outpatient (CLI) | payer BC, SELFPAY ==
--- NOTE | 2022-11-30 11:03 | DI.RAD_ITS ---
Exam(s) XR KNEE LT 1V EXAM: XR KNEE LT 1V CLINICAL HISTORY: left knee DJD. TECHNIQUE: 2D digital imaging was performed. Single lateral view with template ball COMPARISON: CR XR KNEE LT 3V AP,LAT,CHARLES from 10/16/2021 CR XR STANDING ALIGNMENT from 10/19/2022 CR XR KNEE RT 1V from 10/19/2022 FINDINGS: There is spurring at the patellofemoral joint, similar to prior. There is a small joint effusion. T here is severe narrowing of the medial femoral tibial joint space. DATA REPOSITORY: RADIATION DOSE DELIVERED:
== END 2022-11-30 10:16 | disposition home or self-care (01) ==
LOC: DIORS 10:16
PROVIDERS: PCP Family Medicine; Referring Provider Family Medicine; Visit Provider Physician Assistant
DX: M17.12 Unilateral primary osteoarthritis, left knee (principal); M25.462 Effusion, left knee
CPT/HCPCS: 73560

== ENCOUNTER 2022-12-11 07:12 | Day surgery (SDC) | payer BC, SELFPAY ==
[2022-12-11] VITALS (12 sets, daily range): BP systolic 129–182; BP diastolic 75–100; PULSE 42–67; RESP 14–22; TEMP 36–36.6; O2SAT 95–100; BMI 27.4
--- NOTE | 2022-12-11 07:19 | DSE_ITS ---
Date of service: 12/11/22 Time of Service: 12:15 DS: Diagnosis Discharge Diagnosis (1) Osteoarthritis of left knee: Status: Chronic Discharge Plan Disposition Patient Disposition: Home Condition: Good Discharge Details Reason For Visit: Left knee DJD Attending Provider: Gerardo Souza Primary Care Provider: Ashtyn Watson Home Meds and New Rx's Prescriptions: New acetaminophen 500 mg tablet 1,000 mg PO Q8H PRN Qty: 90 0RF Rx Instructions: Take two tablets up to every 8 hours as needed for pain celecoxib [Celebrex] 200 mg capsule 200 mg PO BID PRNQty: 60 0RF Rx Instructions: Take one tablet twice daily for pain and inflammation aspirin 81 mg tablet,delayed release (DR/EC) 81 mg PO BID 30 Days Qty: 60 0RF docusate sodium [Colace] 100 mg capsule 100 mg PO BID Qty: 30 0RF pantoprazole 40 mg tablet,delayed release (DR/EC) 40 mg PO DAILY Qty: 14 0RF dexamethasone 4 mg tablet 4 mg PO DAILY Qty: 2 0RF Rx Instructions: Take one tablet once daily for two days gabapentin 300 mg capsule 300 mg PO QHS Qty: 14 0RF Rx Instructions: Take one tablet at bedtime oxycodone 5 mg tablet 5 mg PO Q4H PRNQty: 18 0RF Rx Instructions: Take one tablet up to every 4 hours as needed for severe postoperative pain Continued loteprednol etabonate [Lotemax] 0.5 % drops,suspension 1 drp ophthalmic (eye) BID Alphagan P 0.1 % drops 1 drp ophthalmic (eye) Q8H dorzolamide-timolol (PF) 2-0.5 % dropperette 1 drp ophthalmic (eye) DAILY valacyclovir 500 mg tablet 500 mg PO DAILY Discharge Instructions Additional Instructions: Total Knee Discharge Instructions Activity: The most important activity is to walk and to work on gentle motion (both flexion and extension). You should try to take short walks a few times a day. It is important that when resting you work on keeping the knee straight. Avoid putting a pillow behind the knee as this will encourage flexion. Work on range of motion exercises as provided by Physical Therapy. - Start outpatient physical therapy within 2 weeks. - You should wear the MARTIN hose on both legs for 2 weeks. You may remove these at night. You may also use any compression sock in place of the MARTIN hose. - Utilize [employer] to review exercises, see videos on exercises and obtain basic information pertaining to your surgery and your recovery. Dressing: Remove the Phill wrap by 2 days after your surgery and put on the MARTIN stocking given to you from the hospital. Keep the surgical dressing (underneath the PHILL wrap) in place for at least one week. After the first week it may be removed and replaced with light gauze and tape or nothing. The wound and dressing may get wet after 3 days but avoid soaking the dressing or otherwise it will need to be changed. Many people prefer covering the dressing with cling w rap (saran wrap) to minimize it from getting soaked. If it gets wet, just pat dry. If it starts to peel off then it will need to be changed. Medications: - You should take Tylenol and anti-inflammatory Celebrex as your primary pain control medications. If the Celebrex is too expensive or not covered, please call the office for another alternative (Advil/Ibuprofen or Naproxen/Aleve) - You have been prescribed a stronger pain medication Oxycodone for breakthrough pain, take as needed as prescribed. - You have also been prescribed a stomach acid reduction agent Pantoprozole to help reduce stomach acid and reflux. - You have been prescribed Gabapentin to take at night for restlessness and nerve pain. - You will be taking Aspirin 81mg twice a day for DVT prevention unless instructed otherwise. - You have also been prescribed Decadron to take to control post-operative nausea and pain. You will start this tomorrow. - If you have constipation you should take Colace (which has been prescribed) or Miralax (which is available [id number]). It takes most people 3-4 days to have a bowel movement. Follow-up: 2 weeks If you have any acute concerns or questions, please do not hesitate to contact the office at [phone]. You may contact Dr. Souza with any questions after hours through the hospital at [phone] or on his cell phone at [phone]. Stand Alone Forms: Anesthesia Discharge Inst., Anes.Nerve Block Instructions, Joel Wood ([facility]) Referrals: Gerardo Souza MD [ [facility] STAFF PHYSICIAN] - 12/24/22 11:00 am Equipment/Supplies: Walker Activity:: Elevate Remove Dressings/Wound Care:: Do Not Remove Shower/Bathe:: Cover Diet:: As Tolerated Discharge Orders Discharge Orders: Discharge Order (Routine); Ordered 12/11/22 Ordered By: Gerardo Souza DS: Summary Time Spent with Patient providing and/or coordinating discharge services: Less than 30 minutes Status at Discharge Functional status at discharge: uses cane/walker Overall status at discharge: patient is progressing back to baseline Mental Status: mental status grossly normal Speech and Movement: speech and movement normal Mood: congruent mood Affect: normal affect Exam Psych Mental Status: mental status grossly normal Speech and Movement: speech and movement normal Mood: congruent mood Affect: normal affect DS: Data Vitals/I&O Vitals and I&O: Intake & Output 12/10/22 12/10/22 12/11/22 11:59 23:59 11:59 Weight 196 lb PFSH All Active Problems Hallux rigidus, left foot (Acute) Right medial knee pain (Acute) Subconjunctival hemorrhage of right eye (Acute) over 10 years ago - shingles Osteoarthritis of left knee (Chronic) History of smoking 10-25 pack years (Acute) rare cigar use BPH loc w urin obs/LUTS (Acute) Medical History 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 ([place], [place]) Right eye only Hyperplastic colon polyp Rectal bleeding resolved Sebaceous cyst Systolic murmur (01/26/14) Surgical History H/O excision of mass (~01/04/21) right later neck lipoma H/O hemorrhoidectomy (~04/18/20) Hemorrhoid banding x2 at time of colonoscopy History of mandibular surgery History of urologic surgery (~2020) Uro[facility]ift [facility] History of wisdom tooth extraction Hx of tonsillectomy S/P colonoscopy (~04/18/20) Family History Mother No problems noted. Father , from complications of emphysema Emphysema/COPD Brother No problems noted. Brother No problems noted. Social History Smoking/Tobacco Use Status: Current every day Tobacco Type: cigars Tobacco: How many years used: 25 Smoking risk assessment performed?: Yes Alcohol Intake: current Alcohol Intake frequency: a few times a week Drug use: Never Substance use type: does not use Adopted: No Household members: spouse Housing: house Number of Children: 0 Communication Needs: None current occupation: [email or web address] Pets and animals: Yes Pets and animals: dog(s) Current gender identity: male What is your relationship status?: Panel score (0-1 are the most socially isolated patients): 1 What type of physical activity do you participate in: regular exercise Duration: 45-60 minutes/day Seatbelt use: always Drive intox or ride w/intox carrier driver: No Working smoke detector in home: Yes Fire extinguisher in home: Yes Carbon monox detector in home: Yes Additional Social history: Unable to assess privatley Time Spent with Patient Time Spent with Patient: <45 minutes Time was spent: obtaining and/or reviewing separately otained hiistory, counseling the patient and care coordination
[2022-12-11] MEDS: Celecoxib 200 MG CAP 400 MG PO (07:55)
[2022-12-11] MEDS: Gabapentin 300 MG CAP PO (07:55)
[2022-12-11] MEDS: Acetaminophen 500 MG TAB 1000 MG PO (07:55)
--- NOTE | 2022-12-11 08:10 | ANES.PREOP_ITS ---
General Info Date of Service Date Performed: 12/11/22 Height: 5 ft 11 in Weight: 89.2 kg Body Mass Index (BMI): 27.4 Surgical Procedure: Operation Date: 12/11/22 09:25 Proposed Procedure Side Surgeon p Knee Total Arthroplasty w/OrthAlign, Cementless CR Left Gerardo Souza MD Actual Procedure Side Surgeon p Knee Total Arthroplasty w/OrthAlign, Cementless CR Left Gerardo Souza MD Meds Allergies and Home Medications Allergies Allergy/AdvReac Type Severity Reaction Status Date / Time No Known Allergies Allergy Verified 12/11/22 07:41 Home Medication Medication Instructions Recorded loteprednol etabonate 0.5 % eye 1 drp ophthalmic (eye) BID 02/24/20 drops,suspension (Lotemax) brimonidine 0.1 % eye drops 1 drp ophthalmic (eye) Q8H 11/04/20 (Alphagan P) dorzolamide-timolol (PF) 2 %-0.5 % 1 drp ophthalmic (eye) DAILY 11/04/20 eye drops in a dropperette valacyclovir 500 mg tablet 500 mg PO DAILY 10/19/22 acetaminophen 500 mg tablet 1,000 mg PO Q8H PRN pain #90 tabs 12/11/22 aspirin 81 mg tablet,delayed 81 mg PO BID 30 days #60 tabs 12/11/22 release celecoxib 200 mg capsule (Celebrex) 200 mg PO BID PRN #60 caps 12/11/22 dexamethasone 4 mg tablet 4 mg PO DAILY #2 tabs 12/11/22 docusate sodium 100 mg capsule 100 mg PO BID #30 caps 12/11/22 (Colace) gabapentin 300 mg capsule 300 mg PO QHS #14 caps 12/11/22 oxycodone 5 mg tablet 5 mg PO Q4H PRN #18 tabs 12/11/22 pantoprazole 40 mg tablet,delayed 40 mg PO DAILY #14 tabs 12/11/22 release Current Visit Medications: Current Medications Generic Name Dose Route Start Last Admin Trade Name Freq PRN Reason Stop Dose Admin Acetaminophen 1,000 mg 12/11/22 06:00 12/11/22 07:55 Acetaminophen 500 Mg Tab PO 12/11/22 16:00 1,000 mg PREOP ELLEN Administration Acetaminophen 1,000 mg 12/11/22 14:00 Acetaminophen 500 Mg Tab PO 10/26/23 13:59 TID ELLEN Celecoxib 400 mg 12/11/22 06:00 12/11/22 07:55 Celecoxib 200 Mg Cap PO 12/11/22 16:00 400 mg PREOP ELLEN Administration Docusate Sodium 100 mg 12/11/22 07:16 Docusate Sodium 100 Mg Cap PO 01/10/23 07:15 BID PRN PRN Constipation Gabapentin 300 mg 12/11/22 06:00 12/11/22 07:55 Gabapentin 300 Mg Cap PO 12/11/22 16:00 300 mg PREOP ELLEN Administration Hydromorphone HCl 0.5 mg 12/11/22 07:16 Hydromorphone 2 Mg/Ml Syr IVP 01/10/23 07:15 Q2H PRN PRN Tranexamic Acid 1,000 mg/ 60 mls @ 360 mls/hr 12/11/22 06:00 Sodium Chloride IVPB 12/11/22 18:00 PREOP ELLEN Ringer's Solution 1,000 mls @ 80 mls/hr 12/11/22 06:00 IV 01/09/23 23:59 INFUSION ELLEN Cefazolin Sodium/Dextrose 2 gm in 50 mls @ 100 mls/hr 12/11/22 06:00 Ancef Duplex IVPB 12/11/22 16:00 PREOP ELLEN Cefazolin Sodium/Dextrose 1 gm in 50 mls @ 100 mls/hr 12/11/22 08:00 Ancef Duplex IVPB 12/12/22 00:29 Q8H ELLEN IV Miscellaneous Supplies 1 each 12/11/22 06:00 Iv Access IV 01/09/23 23:59 DIRECTED ELLEN Ondansetron HCl 4 mg 12/11/22 07:16 Ondansetron 4 Mg/2 Ml Vial IVP 01/10/23 07:15 Q6H PRN PRN Nausea Oxycodone HCl 0 mg 12/11/22 07:16 Oxycodone 5 Mg Tab PO 01/10/23 07:15 Q3H PRN PRN Pain Sodium Chloride 0 ml 12/11/22 06:00 Normal Saline Flush 10 Ml Syr IV 01/09/23 23:59 PRN PRN Sodium Chloride 0 ml 12/11/22 06:00 Normal Saline 10 Ml Vial IJ 10/25/23 23:59 DIRECTED PRN Sterile Water 0 ml 12/11/22 06:00 Water,Injection,Sterile 10 Ml Vial IJ 01/09/23 23:59 DIRECTED PRN PFSH Active Problems Active Problems: Problem Status Onset Code Hallux rigidus, left foot M20.22 Right medial knee pain M25.561 Subconjunctival hemorrhage of right eye H11.31 Osteoarthritis of left knee M17.12 History of smoking 10-25 pack years Z87.891 BPH loc w urin obs/LUTS N40.1 Medical History Medical History Gchog-3-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 ([place], [place]) Right eye only Hyperplastic colon polyp Rectal bleeding resolved Sebaceous cyst Systolic murmur (01/26/14) Surgical History Surgical History H/O excision of mass (~01/04/21) right later neck lipoma H/O hemorrhoidectomy (~04/18/20) Hemorrhoid banding x2 at time of colonoscopy History of mandibular surgery History of urologic surgery (~2020) [facility] History of wisdom tooth extraction Hx of tonsillectomy S/P colonoscopy (~04/18/20) Tobacco Smoking/Tobacco Use Status: Current every day Tobacco Type: cigars Alcohol Alcohol Intake: current Alcohol intake frequency: a few times a week Substance Use Substance use: Never Substance use type: does not use Vital Signs and Lab Results Vital Signs Most Recent Vital Signs in EMR: Most Recent Vital Signs Temp Pulse Resp BP Pulse Ox 36.1 C L 56 L 16 161/100 H 98 12/11/22 07:48 12/11/22 07:48 12/11/22 07:48 12/11/22 07:48 12/11/22 07:48 Lab Results Blood Type / Crossmatch: No Data to Display Complete Blood Count: White Blood Count 4.71 10^3/uL (4.4-10.8) 11/30/22 11:39 Red Blood Count 4.25 10^6/uL (4.36-5.78) L 11/30/22 11:39 Hemoglobin 14.5 g/dL (13.5-17.5) 11/30/22 11:39 Hematocrit 41.2 % (40.0-50.0) 11/30/22 11:39 Platelet Count 249 10^3/uL (130-400) 11/30/22 11:39 Complete Metabolic Panel: Sodium 138 mmol/L (136-145) 11/30/22 11:39 Potassium 5.0 mmol/L (3.5-5.1) 11/30/22 11:39 Chloride 105 mmol/L (98-107) 11/30/22 11:39 Carbon Dioxide 29.4 mmol/L (21.0-32.0) 11/30/22 11:39 BUN 20 mg/dL (7-18) H 11/30/22 11:39 Creatinine 0.9 mg/dL (0.70-1.30) 11/30/22 11:39 Est GFR (CKD-EPI 2020) 95.37 (mL/min/1.73m2) 11/30/22 11:39 Calcium 9.4 mg/dL (8.5-10.1) 11/30/22 11:39 Glucose 103 mg/dL (74-106) 11/30/22 11:39 Liver Function Panel: No Data to Display Coagulation Panel: No Data to Display Cardiac Panel: No Data to Display Arterial Blood Gas: No Data to Display Venous Blood Gas: No Data to Display Pancreas Panel: No Data to Display Thyroid Panel: No Data to Display Infectious Disease: No Data to Display Blood Cultures: No Data to Display Toxicology Panel: No Data to Display Imaging and Studies Imaging and Studies Study information below may be from another EMR and interpreted by another provider. Please see original notes in EMR for more complete details. Echocardiogram Summary: 11/29/2022: Conclusion Normal left ventricular wall thickness and chamber size. Ejection fraction is normal. There are no segmental wall motion abnormalities. Diastolic function is normal for age Normal right ventricular size and function Both atria are normal in size Aortic valve is mildly sclerotic and trileaflet with trace regurgitation. There is no aortic stenosis Estimated right ventricular systolic pressure is 25 mmHg Mildly dilated ascending aorta 3.67 cm Pulmonary Function Summary: INTERPRETATION SPIROMETRY: Spirometry shows no evidence of obstructive airways disease. No bronchodilator testing was carried out. LUNG VOLUMES: Lung volumes show no evidence of restriction. DIFFUSION CAPACITY: Normal. AIRWAY RESISTANCE: Normal. IMPRESSION: Normal pulmonary function study. 11/26/12 Anesthesia Assessment and Plan Anesthesia History Personal History: No History of Anesthesia Complications Family History: No Family History of Anesthesia Complications Exercise Tolerance Exercise Tolerance: Metabolic Equivalents>4 Pertinent Negatives Pertinent Negatives: No Symptoms of GERD, No Major Cardiovascular Symptoms or Complaints and No Major Pulmonary Symptoms or Complaints Cardiac & Pulmonary Exam Cardiac Exam: Normal S1/S2 Heart Sounds Pulmonary Exam: Clear Bilateral Breath Sounds Implantable Cardiac Device Does patient have a Pacemaker or an ICD?: No Airway Exam Known Difficult Airway: No Mallampati Class: 1 Mouth Opening: Normal (> 3cm) Thyromental Distance: Greater than 3 cm Neck Range of Motion: Full ROM Neck Circumference: Normal Teeth Condition: Normal Dentition ASA Classification ASA Score: ASA 2 Emergency Case?: No NPO Status NPO Status: NPO Clears >2 hours, Solids >8 hours Anesthesia Plan Resuscitation Status: Full Code Anesthesia Technique: Spinal Anesthesia Airway Planned: Natural Airway Pain Management: Surgeon and patient request nerve block Monitors Used: Standard Monitors
[2022-12-11] MEDS: Lactated Ringers 1,000 ML 80 ML IV (08:19)
[2022-12-11] MEDS: ceFAZolin 2 GM/50 ML BAG IVPB (09:05)
--- NOTE | 2022-12-11 09:38 | W.ANESNERVE ---
Nerve Block Single Injection Procedure Date and Time Date Performed: 12/11/22 Procedure Start: 08:55 Location Where Procedure Performed Procedure Location: Operating Room Procedure Stop: 09:00 Reason Performed: Postoperative Analgesia Requesting Provider: Gerardo Souza Timeout Performed Timeout Performed: Yes Monitoring Used ECG, Blood Pressure, SpO2 and See EMR for corresponding vital signs Sterility Sterility: Hand Hygiene, Surgical Cap, Surgical Mask, Sterile Gloves, Sterile Drape/Sheet and Chlorhexidine Sedation Given During Procedure Sedation Given (Indicate Dose Given): Versed IV Dose:: 2mg Patient Mental Status Patient Mental Status: Sedate with meaningful communication Nerve Block 1st Nerve Block: Laterality: Left Block Type: Adductor Canal Ultrasound Image Saved?: Yes Needle / Catheter Used: 100mm SonoPlex II Local Anesthetic Bolus (Indicate Dose Given): Lidocaine used for local infiltration of skin, Injected in 3-5ml increments after negative blood aspiration and Bupivacaine 0.25% Dose:: 10mL Additives (Indicate Dose Given): None Ultrasound: Sterile probe cover and gel used Nerve Stimulator: Supplement to Ultrasound use and No twitch or parasthesia noted < 0.5 mA Paresthesia: None Post Procedure Pain score (0-10): 0 Procedure Tolerated: No Complications and Patient tolerated well Procedure Outcome: Successful Performed By: Bisi Goldman
--- NOTE | 2022-12-11 10:46 | ROE_ITS ---
Date of service: 12/11/22 Time of Service: 10:46 Operative Note Operative Note DATE OF PROCEDURE: 12/11/22 PRE-OP DIAGNOSIS: Left Knee Osteoarthritis POST-OP DIAGNOSIS: same PROCEDURE: Left Total Knee Replacement with Intraoperative Navigation SURGEON: Gerardo Souza BUN PANNER: Sherry Tucker ANESTHESIA TYPE: Spinal Refer to Anesthesia Record ESTIMATED BLOOD LOSS: 300 PATHOLOGY: none sent TOURNIQUET TIME: 0 COMPLICATIONS: None Patient was transported to: PACU Patient's condition: stable Implants: 1. Depuy Attune Cementless Cruciate Retaining Femoral Component, Size 9 2. Depuy Attune Cementless Fixed Bearing Tibial Component, Size 7 3. Depuy Attune 9x6 CR/FB Poly 4. Depuy Attune Patellar Component, Size 38 Indications: I have seen Arvind in clinic for symptoms of LEFT knee arthritis, confirmed with radiographic findings. Arvind has exhausted nonoperative methods and was having significant limitations in daily function and desired better function and less pain. I discussed the technical details of a knee replacement. I explained the risks of the procedure to include, but not limited to, bleeding, infection, pain, stiffness, fracture, damage to nerves and vessels, damage to muscles and tendons, loosening, need for repeat procedure, blood clot and cardiopulmonary demise. Despite these risks, Arvind elected to proceed. Findings: There was significant signs of arthritis throughout the knee, mostly involving the medial compartment but the trochlea and patella also had significant chondromalacia. Procedure Description: Arvind was greeted in the preoperative holding area where the correct side was identified and marked. The consent was reviewed with the patient and signed. The history and physical was updated. All questions were answered. Preoperative mediacations were administered: Acetaminophen 1000mg, Celebrex 400mg, and Gabapentin 300mg. An adductor canal block was then administered by the anesthesia team in the PACU. Arvind was taken back to the operating room. A spinal anesthestic was then administered. The patient was placed into the supine position on the operating room table. A nonsterile tourniquet was placed high onto the leg. Posts were placed for positioning during the procedure. All bony prominences were well padded. Prophylactic antibiotics in the form of Cefazolin were administered. 1g of Tranxemic Acid was given intravenously within 30 minutes of incision. The left leg was then prepped with Chloraprep and draped in a standard fashion with impervious stockinette. A second prep with Chloraprep was performed prior to application of Iodine impregnated skin protection. A timeout to confirm correct identity, side and site, procedure, allergies, anesthesia, and medical concerns was performed. With the knee in some flexion, a midline incision was made overlying the knee. Full thickness skin flaps were raised once the extensor mechanism was encountered. These were raised medially and laterally. Any bleeding was controlled with electrocautery. Once the extensor mechanism was fully exposed, a medial parapatellar arthrotomy was performed in a flexed position. All bleeding from the arthrotomy and the geniculate arteries was coagulated. A medial subperiosteal peel was performed with electrocautery to the midcoronal plane. Due to the significant varus deformity the entire medial tibial plateau was exposed. The fat pad was removed while keeping the patellar tendon protected. The anterior distal femur synovium was removed for later visualization. The ACL and PCL were resected and the anterior horn of the lateral meniscus was transected. The knee was then flexed with the patella everted. Large osteophytes from the tibia were removed. Large osteophytes from the femur were removed. A single starting pin was then placed 1cm anterior to the PCL insertion and the notch in the direction of the femoral head. The OrthoAlign device was applied over the pin. It was oriented to be in line with the epicondylar axis and the trochlear groove. It was then pinned into place. The navigation computer was then turned on and calibrated. The distal femur cut was set at 1 degrees varus and 3.5 degrees flexion. The distal femur cutting guide then was positioned for a 9mm cut. The distal femur was cut with an oscillating saw while protecting the soft tissues. The tibia was then addressed. The OrthoAlign device was placed over the tibial tubercle and medial tibia and secured into position. Once again, OrthoAlign was calibrated and then set for a 1 degree varus cut and 5 degrees of posterior slope. With this locked into position, the cut thickness stylus was used to assess cut thickness. The medial side, most involved side, was set for a 4mm cut. This was then held in position and pinned into place with 2 additional pins and a cross pin for stability. The medial and lateral collateral ligaments were protected and the cut was performed. With this completed, it was assessed and noted to be of appropriate dimensions. The guide and OrthoAlign was removed. A spacer block was inserted and the knee was brought into extension to ensure enough space was present. . The Orthoalign gap balancing device was then placed in extension. This was used to ensure that the ligaments were properly balanced with up to 2 to 3 mm laxity laterally compared medially. The extension gap was measured as 19mm. The knee was then brought into 90 degrees of flexion and the ligament men's furnishings salesperson was once again placed. Under the same amount of force the flexion gap was measured. The Attune specific jig was placed and the flexion gap was made to match the extension gap. The femur was then sized as a size 9. The 4-in-1 cutting guide was the placed. At this point, it was identified that there was some rollback of the proximal margin of the patellar tendon insertion. This involved only a small portion of the insertion and a smooth pin was inserted through the tendon into the proximal tibia to prevent any progression. An evelyn wing was used to confirm appropriate position of the anterior cut to avoid notching. This cutting guide was ensured to be flush on the cut surface and then pinned into place with headed pins. While protecting the soft tissues, quad tendon, and collateral ligaments, the anterior and posterior cuts were performed with a saw. The central two pins were removed and the posterior and anterior chamfers were cut next. The notch-cutting guide was placed. This was pinned to lateralize the femoral component as much as possible while keeping it flush on the cut surface. This was then pinned into position. A saw was used to make the notch cut. A rasp smoothed the cut surfaces. The medial and lateral menisci were removed. A tri al femoral component was then inserted, impacted down to the cut surfaces, and the lug holes were drilled. A provisional trial tibial component was placed and the knee was brought through range of motion. There was noted to be excellent extension and flexion. There was no significant instability. The polyethylene was trialed until there was good flexion and extension with excellent stability to the medial and lateral collaterals. The patella was tracking without thumbs. A size 6mm polyethylene component provided the best range of motion and stability with less than 2mm gapping with medial and lateral stress and full extension without significant hyperextension. The tibial cut surface was fully exposed. The tibia was then sized as a 7. The tibia had been previously marked during trialing to correspond to the center of the tibial component to help with rotation. The trial was aligned to this k[place]ak, approximately rotated to the medial 1/3rd of the tibial tubercle. The trial was pinned into place. The tibia was prepared with a reamer and a keel punch and lug holes. The knee was then brought into extension and the patella was measured as 28mm. Using the patellar clamp and cut guide, this was resected to a flat surface with at least 13mm of thickness remaining. The size 38 patella fit the best. This was oriented and then clamped into position. The lugs were drilled. The trial components were removed. The final components were opened on the back table. The periosteal and capsular tissues, especially posteriorly, around the knee were then systematically injected with a periarticular cocktail consisting of 246mg of Ropivacaine, 0.5mg of Epinephrine, 0.08mg of Clonidine, and 30mg of Ketorolac, diluted to 100cc. On the back table, with the implants opened, the cement was mixed. One batch of high viscosity cement was prepared with vacuum assistance. After the cement was ready a small amount was placed on the cut surface of the patella and the patellar button was clamped into position and held. While the cement was hardening, the cementless knee components were placed. Starting with the tibial component, the tibia was subluxed anteriorly and the lug holes of the component were lined up. The tibia was then impacted with an impactor and mallet until the tibial component was in contact with the tibia. Then, the femoral component was inserted. The lug holes were aligned and the component was impacted into position. The final polyethylene component was inserted. The knee was irrigated with Surgiphor Betadine solution. This was allowed to sit in the knee for 3 minutes and then it was thoroughly irrigated out with saline. After the cement had finally cured, approximately 15min, the clamp was removed from the patella and the knee was taken through range of motion. The patella was tracking with a no-thumbs technique. The capsule was then reapproximated with a No. 1 Vicryl at multiple locations. The capsule was finally closed with a No. 2 Stratafix, barbed suture. Deep tissues were then reapproximated with 0 Vicryl and 2-0 Vicryl. The skin was closed with a running 3-0 Monocryl in a subcuticular fashion. This was reinfor geri with skin glue. A Mepilex silver dressing was applied along with a [id number] RASHAD wrap. A CryoCuff was applied. Arvind was transferred to the hospital bed without difficulty an suffering no apparent complication. Arvind has a good prognosis. Physical therapy will start today and without restrictions, weight-bearing as tolerated. Aspirin 81mg BID will be used for DVT prophylaxis.
[2022-12-11] MEDS: fentaNYL 100 MCG/2 ML VIAL IVP (11:36)
[2022-12-11] MEDS: oxyCODONE 5 MG TAB PO (12:38)
--- NOTE | 2022-12-11 12:51 | PT.INIE ---
PT Notes Visit Reasons: Left knee DJD Physical Therapy Day Surgery Initial Evaluation Date: 12/11/2022 Referring Doctor: DIANA Trevizo PT Orders: PT CONSULT: S/P Ortho surgery Precautions: WBAT on the left LE with AD. Patient Profile/Admitting Diagnosis: Arvind is a 62-year-old male with degenerative joint disease of the left knee and is status post left total knee arthroplasty on postoperative day 0. 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 normal > 91) and? 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 ([place], [place]) Right eye only Hyperplastic colon polyp Rectal bleeding resolved Sebaceous cyst Systolic murmur (01/26/14) Surgical History?(Updated 11/30/22 @ 10:46 by Sherry Tucker) H/O excision of mass (~01/04/21) right later neck lipoma H/O hemorrhoidectomy (~04/18/20) Hemorrhoid banding x2 at time of colonoscopy History of mandibular surgery History of urologic surgery (~2020) Uro[facility] History of wisdom tooth extraction Hx of tonsillectomy S/P colonoscopy (~04/18/20) Social History/Home Situation: Lives in a private home with . Has 2-3 steps to enter with a rail on one side. Independent with all mobility ADLs although with increasing difficulty that led to this surgery. Equipment Owned/DME: [facility] Subjective: Reports 1?2/10 pain in the left knee at rest and with weightbearing Objective: General Observation: Supine in bed. RASHAD wraps to left LE. Cryocuff to left knee. Mental Status: Alert and oriented x4 as above Pain: ROM: Right Lower Extremity: Hip flexion WFL. Hip abduction WFL. Knee flexion WFL. Ankle dorsiflexion WFL. Ankle plantarflexion WFL. Left Lower Extremity: Hip flexion WFL. Hip abduction WFL. Knee flexion 30 degrees to 100 degrees. Knee extension -30 degrees. Ankle dorsiflexion WFL. Ankle plantarflexion WFL. Strength: Right Lower Extremity: Hip flexors 5/5. Hip abductors 5/5. Knee flexors 5/5. Knee extensors 5/5. Ankle dorsiflexors 5/5. Ankle plantarflexors 5/5. Left Lower Extremity:Hip flexors 4/5. Hip abductors 4/5. Knee flexors 3-/5. Knee extensors 3-/5. Ankle dorsiflexors 5/5. Ankle plantarflexors 5/5. Sensation: Intact as to pain and light pressure and bilateral lower extremities except for the left heel Bed Mobility/Transfers: Supine to sit standby assist with cues provided to use rail as needed Sit to stand contact-guard assist using FWW with cues provided to use B UE for support for safety Stand to sit standby assist with cues provided to reach behind for armrest for control descent Bed to chair contact-guard assist using FWW with cues provided to use B UE for support for safety Gait: Guided patient with level surface ambulation of 150 feet using front-wheeled walker with step-to gait pattern requiring contact-guard assist and minimal verbal cueing for AD management, limb advancement, and overall safety. Stairs: Facilitated safe ascent and descent of 6 x 4 inch steps and 4 x 6 inch steps while holding onto the rails with standby assist requiring minimal assist for safe gait pattern. Balance: Static Sitting: Normal Dynamic Sitting: Normal Static Standing: Fair Dynamic Standing: Fair Special Tests: Mobility Limitations Standardized Measure [facility]-PAC 6 clicks Basic Mobility Inpatient Short Form: Raw Score: 21 CMS Score: 29% deficit Informed Consent/Education: Patient instructed in purpose of PT consult. Trained patient with correct performance of exercises below to maximize motor control, joint flexibility, soft tissue extensibility of the L knee musculature. Packet containing TKA exercise protocol has been given to patient. SPEEDY EX: Access Code: [email or web address] URL: [email or web address] Date: 10/09/2022 Prepared by: Roselyn Perez Exercises - Supine Quad Set - 1 x daily - 7 x weekly - 1 sets - 10 reps - 5 hold - Supine Heel Slide - 1 x daily - 7 x weekly - 1 sets - 10 reps - 5 hold - Supine Ankle Pumps - 1 x daily - 7 x weekly - 1 sets - 10 reps - 5 hold - Small Range Straight Leg Raise - 1 x daily - 7 x weekly - 1 sets - 10 reps - 5 hold - Seated March - 1 x daily - 7 x weekly - 1 sets - 10 reps - 5 hold Assessment: Patient requires the use of a front wheeled walker for all mobility ADL performance to maximize independence and reduce fall risk. Patient presents with clinical signs and symptoms consistent with current/admitting diagnoses that have resulted to mobility limitations, gait instability, generalized weakness, and impairment of motor control as demonstrated by the following impairment level findings: 1. Decreased strength to left knee major muscle groups 2. Impaired standing balance 3. Limitation of joint range of motion in left knee Impairments are contributing to the following functional limitations: 1. Inability to safely ambulate without assistive device 2. Increase completion time for mobility ADL performance 3. Increased fall risk Patient is assessed as a 67802 moderate complexity based on the following: History: 62-year-old male with impairment level findings, functional limitations, and past medical history as indicated above Examination: Demonstrable impairment in strength, balance, and mobility level with underlying impairments and functional limitations as documented above Presentation: Evolving Decision Makin moderate complexity Goals: N/A. PT evaluation and 1-2 treatment sessions only for functional mobility training using recommended AD and for HEP instruction. Plan of Care/Treatment Plan: N/A. PT evaluation and 1-2 treatment session only for functional mobility training using recommended AD and for HEP instruction. DISCHARGE RECOMMENDATIONS: Home when medically cleared by orthopedic surgeon. Recommend outpatient PT services in order to optimize functional mobility outcomes and facilitate return to independent community ambulation without an assistive device. TREATMENT CODE/TIME: 53780 x 29 minutes for 1 unit beginning at 12:51 PM. Thank you for the opportunity to participate in the care of this patient. Roselyn Perez PT, DPT, CLT [facility] [place], [place]
--- NOTE | 2022-12-11 13:57 | W.ANESPOSTOP ---
Postoperative Evaluation Date, Time and Location Date Performed: 12/11/22 Time Performed: 13:57 Patient Location: Day Surgery Unit Vital Signs Most Recent Imported Vital Signs: Most Recent Vital Signs Temp Pulse Resp BP Pulse Ox 36.1 C L 56 L 16 182/89 H 97 12/11/22 12:32 12/11/22 12:32 12/11/22 12:32 12/11/22 12:32 12/11/22 12:32 Pain Score Most Recent Pain Score: Most Recent Pain Score Pain Level 6 12/11/22 12:32 Assessment Mental Status: Awake (Alert & Oriented to Patient Baseline) Airway and Respiratory Function: Patent airway with normal (patient baseline) respiratory exam Cardiovascular Function: Hemodynamically Stable Hydration Status: Adequately Hydrated Nausea & Vomiting: No Nausea or Vomiting Pain: Pain is tolerable per patient Peripheral Nerve Block: Regional nerve block not resolved at time of post operative discharge
== END 2022-12-11 14:20 | disposition home or self-care (01) ==
PROVIDERS: PCP Family Medicine; Visit Provider Student in an Organized Health Care Education/Training Program
PROC: (CPT 27447; principal; 2022-12-11 09:15)
DX: M17.12 Unilateral primary osteoarthritis, left knee (principal); E88.01 Alpha-1-antitrypsin deficiency; Z87.891 Personal history of nicotine dependence; N40.1 Benign prostatic hyperplasia with lower urinary tract symptoms
CPT/HCPCS: 27447; 20985; 76942; 97162; J0690; J1100; J2001; J2250; J2405; J3010

== ENCOUNTER 2022-12-24 11:26 | Outpatient (CLI) | payer BC, SELFPAY ==
--- NOTE | 2022-12-24 11:00 | DI.RAD_ITS ---
Exam(s) XR KNEE LT 1V XR STANDING ALIGNMENT EXAM: XR STANDING ALIGNMENT CLINICAL HISTORY: 1ST POST OP S/P L TKA. TECHNIQUE: 2D digital imaging was performed. Standing AP views were performed from the pelvis throu gh the ankles. Lateral view left knee COMPARISON: CR XR STANDING ALIGNMENT from 10/19/2022 CR XR KNEE RT 1V from 10/19/2022 CR XR KNEE LT 1V from 11/30/2022 CR XR KNEE LT 1V from 12/24/2022 FINDINGS: BONES: No acute fracture is present. No bony destructive lesion is seen. Leg length discrepancy: The right femoral head projects proximally 5 millimeter superior to the left. JOINTS: Knees: Left knee prosthesis show satisfactory alignment. There are mild degenerative guaman es of the medial femoral tibial joint of the right knee.. The ankle joints are unremarkable. The hip joints minimal degenerative changes.. SOFT TISSUE: Normal. IMPRESSION: Mild degenerative changes right knee. Left knee prosthesis.. Minimal overall leg length discrepancy. DATA REPOSITORY: RADIATION DOSE DELIVERED:
== END 2022-12-24 11:27 | disposition home or self-care (01) ==
LOC: DIORS 11:27
PROVIDERS: PCP Family Medicine; Visit Provider Student in an Organized Health Care Education/Training Program
DX: Z96.652 Presence of left artificial knee joint (principal); M17.11 Unilateral primary osteoarthritis, right knee; Z47.1 Aftercare following joint replacement surgery
CPT/HCPCS: 73560; 77073

== ENCOUNTER 2023-03-12 09:58 | Day surgery (SDC) | payer BC, SELFPAY ==
[2023-03-12] VITALS (7 sets, daily range): BP systolic 116–150; BP diastolic 65–91; PULSE 56–97; RESP 12–16; TEMP 36.1–36.5; O2SAT 96–98; BMI 28.1
--- NOTE | 2023-03-12 08:16 | PDOC.DSDIS_ITS ---
Date of service: 03/12/23 Time of Service: 08:19 Discharge Plan Disposition Condition: Good Discharge Details Reason For Visit: Arthrofibrosis of left TKA Attending Provider: Gerardo Souza Primary Care Provider: Ashtyn Watson Home Meds and New Rx's Prescriptions: Continued ibuprofen 400 mg tablet 400 mg PO BID loteprednol etabonate [Lotemax] 0.5 % drops,suspension 1 drp ophthalmic (eye) BID brimonidine [Alphagan P] 0.1 % drops 1 drp ophthalmic (eye) Q8H dorzolamide-timolol (PF) 2-0.5 % dropperette 1 drp ophthalmic (eye) DAILY valacyclovir 500 mg tablet 500 mg PO DAILY Discharge Instructions Additional Instructions: Knee Manipulation Discharge Instructions Activity: You should begin moving as soon as possible. You may work on flexion but also equally maintain extension. You may bear weight as tolerated, using crutches only for support/comfort. You should apply ice to help with swelling and elevate when possible (especially in the first few days). Dressings: The knee dressing may come down after 48 hours. You may shower and get the wound wet at that time. You should keep the wounds covered with a bandaid until follow-up. Medications: - Rarely does this require any stronger pain medications. - Recommend to take up to 1000mg of Acetaminophen (Tylenol) and 600mg of Ibuprofen (Advil) every 8 hours as needed. These larger strength tablets were called in but you also may use [id number]. Follow-up: 7-10 days Referrals: Gerardo Souza MD [ [facility] STAFF PHYSICIAN] - Equipment/Supplies: Partial Weight Bearing Crutches Activity:: Elevate Remove Dressings/Wound Care:: 48 hours Shower/Bathe:: 48 hours Activity:: Activity as Tolerated Diet:: As Tolerated
--- NOTE | 2023-03-12 09:57 | ANES.PREOP_ITS ---
General Info Date of Service Date Performed: 03/12/23 Height: 5 ft 11 in Weight: 91.626 kg Body Mass Index (BMI): 28.1 Surgical Procedure: Operation Date: 03/12/23 11:10 Proposed Procedure Side Surgeon p Knee Manipulation of Knee Left Gerardo Souza MD Meds Allergies and Home Medications Allergies Allergy/AdvReac Type Severity Reaction Status Date / Time No Known Allergies Allergy Verified 03/12/23 10:25 Home Medication Medication Instructions Recorded loteprednol etabonate 0.5 % eye 1 drp ophthalmic (eye) BID 02/24/20 drops,suspension (Lotemax) brimonidine 0.1 % eye drops 1 drp ophthalmic (eye) Q8H 11/04/20 (Alphagan P) dorzolamide-timolol (PF) 2 %-0.5 % 1 drp ophthalmic (eye) DAILY 11/04/20 eye drops in a dropperette valacyclovir 500 mg tablet 500 mg PO DAILY 10/19/22 ibuprofen 400 mg tablet 400 mg PO BID 03/04/23 Current Visit Medications: Current Medications Generic Name Dose Route Start Last Admin Trade Name Freq PRN Reason Stop Dose Admin Acetaminophen 650 mg 03/12/23 08:16 Acetaminophen 325 Mg Tab PO 04/11/23 08:15 Q4H PRN PRN Hydrocodone Bitart/Acetaminophen 0 tab 03/12/23 08:16 Hydrocodone 5/Acetaminophen 325 Tab PO 04/11/23 08:15 Q3H PRN PRN Pain Ringer's Solution 1,000 mls @ 80 mls/hr 03/12/23 06:00 IV 04/07/23 23:59 INFUSION ELLEN IV Miscellaneous Supplies 1 each 03/12/23 06:00 Iv Access IV 04/07/23 23:59 DIRECTED ELLEN Sodium Chloride 0 ml 03/12/23 06:00 Normal Saline Flush 10 Ml Syr IV 04/07/23 23:59 PRN PRN Sodium Chloride 0 ml 03/12/23 06:00 Normal Saline 10 Ml Vial IJ 04/07/23 23:59 DIRECTED PRN Sterile Water 0 ml 03/12/23 06:00 Water,Injection,Sterile 10 Ml Vial IJ 04/07/23 23:59 DIRECTED PRN PFSH Active Problems Active Problems: Problem Status Onset Code Arthrofibrosis of total knee arthroplasty T84.82XA History of total left knee replacement 12/11/22 Z96.652 Hallux rigidus, left foot M20.22 Right medial knee pain M25.561 Subconjunctival hemorrhage of right eye H11.31 History of smoking 10-25 pack years Z87.891 BPH loc w urin obs/LUTS N40.1 Medical History Medical History 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 ([place], [place]) Right eye only Hyperplastic colon polyp Rectal bleeding resolved Sebaceous cyst Systolic murmur (01/26/14) Surgical History Surgical History H/O excision of mass (~01/04/21) right later neck lipoma H/O hemorrhoidectomy (~04/18/20) Hemorrhoid banding x2 at time of colonoscopy History of mandibular surgery History of urologic surgery (~2020) UroLift [facility] History of wisdom tooth extraction Hx of tonsillectomy S/P colonoscopy (~04/18/20) Tobacco Smoking/Tobacco Use Status: Current every day Tobacco Type: cigars Alcohol Alcohol Intake: current Alcohol intake frequency: a few times a week Substance Use Substance use: Never Substance use type: does not use Vital Signs and Lab Results Vital Signs Most Recent Vital Signs in EMR: Temp Pulse Resp BP Pulse Ox 36.2 C L 97 H 16 150/91 H 97 03/12/23 10:15 03/12/23 10:15 03/12/23 10:15 03/12/23 10:15 03/12/23 10:15 Lab Results Blood Type / Crossmatch: No Data to Display Complete Blood Count: No Data to Display Complete Metabolic Panel: No Data to Display Liver Function Panel: No Data to Display Coagulation Panel: No Data to Display Cardiac Panel: No Data to Display Arterial Blood Gas: No Data to Display Venous Blood Gas: No Data to Display Pancreas Panel: No Data to Display Thyroid Panel: No Data to Display Infectious Disease: No Data to Display Blood Cultures: No Data to Display Toxicology Panel: No Data to Display Imaging and Studies Imaging and Studies Study information below may be from another EMR and interpreted by another provider. Please see original notes in EMR for more complete details. Echocardiogram Summary: 11/29/2022: Conclusion Normal left ventricular wall thickness and chamber size. Ejection fraction is normal. There are no segmental wall motion abnormalities. Diastolic function is normal for age Normal right ventricular size and function Both atria are normal in size Aortic valve is mildly sclerotic and trileaflet with trace regurgitation. There is no aortic stenosis Estimated right ventricular systolic pressure is 25 mmHg Mildly dilated ascending aorta 3.67 cm Pulmonary Function Summary: INTERPRETATION SPIROMETRY: Spirometry shows no evidence of obstructive airways disease. No bronchodilator testing was carried out. LUNG VOLUMES: Lung volumes show no evidence of restriction. DIFFUSION CAPACITY: Normal. AIRWAY RESISTANCE: Normal. IMPRESSION: Normal pulmonary function study. 11/26/12 Anesthesia Assessment and Plan Anesthesia History Personal History: No History of Anesthesia Complications Family History: No Family History of Anesthesia Complications Exercise Tolerance Exercise Tolerance: Metabolic Equivalents>4 Cardiac & Pulmonary Exam Cardiac Exam: Normal S1/S2 Heart Sounds Pulmonary Exam: Clear Bilateral Breath Sounds Implantable Cardiac Device Does patient have a Pacemaker or an ICD?: No Airway Exam Known Difficult Airway: No Mallampati Class: 1 Mouth Opening: Normal (> 3cm) Thyromental Distance: Greater than 3 cm Neck Range of Motion: Full ROM Neck Circumference: Normal Teeth Condition: Normal Dentition ASA Classification ASA Score: ASA 2 Emergency Case?: No NPO Status NPO Status: NPO Clears >2 hours, Solids >8 hours Anesthesia Plan Resuscitation Status: Full Code Anesthesia Technique: General Anesthesia Airway Planned: Natural Airway Monitors Used: Standard Monitors Preoperative Comments:: 62 yo male for knee manipulation. Sig PMHx: denies major, smoker, occ EtOH. Previous Anes: - east mask, glide 3 grade 1.
[2023-03-12] MEDS: Lactated Ringers 1,000 ML 80 ML IV (10:45)
[2023-03-12] MEDS: Bupivacaine 0.5% Pres-Free 30 ML VIAL (11:07)
--- NOTE | 2023-03-12 11:29 | W.ANESPOSTOP ---
Postoperative Evaluation Date, Time and Location Date Performed: 03/12/23 Time Performed: 11:29 Patient Location: PACU Vital Signs Most Recent Imported Vital Signs: Most Recent Vital Signs Temp Pulse Resp BP Pulse Ox 36.5 C 57 L 13 117/65 97 03/12/23 11:26 03/12/23 11:26 03/12/23 11:03/12/23 11:03/12/23 11:26 Pain Score Most Recent Pain Score: Most Recent Pain Score Pain Level 0 03/12/23 11:26 Assessment Mental Status: Arousable with meaningful communication Airway and Respiratory Function: Patent airway with normal (patient baseline) respiratory exam Cardiovascular Function: Hemodynamically Stable Hydration Status: Adequately Hydrated Nausea & Vomiting: No Nausea or Vomiting Pain: Pain is tolerable per patient Peripheral Nerve Block: Patient did not receive a nerve block
--- NOTE | 2023-03-12 12:50 | ROE_ITS ---
Date of service: 03/12/23 Time of Service: 11:30 Operative Note Operative Note DATE OF PROCEDURE: 03/12/23 PRE-OP DIAGNOSIS: Left Knee Arthrofibrosis s/p Replacement POST-OP DIAGNOSIS: same PROCEDURE: Left Knee Manipulation Under Anesthesia SURGEON: Gerardo Souza ANESTHESIA TYPE: General:No Airway Refer to Anesthesia Record ESTIMATED BLOOD LOSS: 0 PATHOLOGY: none sent TOURNIQUET TIME: 0 COMPLICATIONS: None Patient was transported to: PACU Patient's condition: stable Indications: Arvind is a 62 year old male who is s/p knee replacement. Despite diligent work with physical therapy there has been continued stiffness and pain with mobility. To assist with mobility and pain, I offered a manipulation under anesthesia. I discussed the risks of the procedure to include bleeding, pain, recurrent stiffness, fracture. Despite these risks, he elects to proceed. Findings: Preoperative flexion = 115 Postoperative flexion = 130 Preoperative extension = 15 Postoperative extension = 7 Procedure Description: The patient was greeted in the preoperative holding area. Identity was confirmed and the correct side was identified and marked. The consent was reviewed the patient and signed. History and physical was updated. Arvind was taken back to the operating room. The left side was identified as the correct side. A timeout was performed for safe surgery. A general anesthetic was administered. The knee was then prepped with ChloraPrep and an intra-articular injection of 10 cc of 0.5% bupivacaine was administered. Once a muscle relaxant was fully on board manipulation was performed. Pre- manipulation range of motion was noted. A gentle manipulation was performed first into flexion using a very small lever arm and adding gentle and progressive pressure to the tibia. There is audible and palpable crepitus with improvement in range of motion. This was cycled and repeated multiple times. The leg was then brought into extension and gentle anterior posterior pressure was applied with a supported hand behind the proximal tibia and knee. This was brought back into flexion was once again manipulated with gentle and progressive pressure. Final range of motion numbers were recorded. A Band-Aid was applied to the injection site. He was awakened from anesthesia and taken to the PACU in stable condition.
== END 2023-03-12 12:40 | disposition home or self-care (01) ==
LOC: SUR 09:58
PROVIDERS: PCP Family Medicine; Visit Provider Student in an Organized Health Care Education/Training Program
PROC: (CPT 27570; principal; 2023-03-12 11:00)
DX: T84.82XA Fibrosis due to internal orthopedic prosthetic devices, implants and grafts, initial encounter (principal); Z96.652 Presence of left artificial knee joint
CPT/HCPCS: 27570; J1885; J2001; J2704

== ENCOUNTER 2024-11-18 14:09 | Outpatient (CLI) | payer MEDICARE, SELFPAY ==
--- NOTE | 2024-11-18 10:39 | DI.RAD_ITS ---
Exam(s) XR FOOT LT COMPLETE EXAM: XR FOOT LT COMPLETE CLINICAL HISTORY: Left foot pain M79.672. TECHNIQUE: 2D digital imaging was performed of the left foot. Three images were obtained. AP, oblique and lateral views were obtained. COMPARISON: CR XR FOOT LT COMPLETE from 10/16/2021 FINDINGS: BONES: No acute fracture is present. No bony destructive lesion is seen. JOINTS: No dislocation present. There are mild degenerative changes seen at the 1st MTP joint characterized by joint space narrowing and osteophytes. The joint spaces are otherwise well maintained. SOFT TISSUE: Normal. IMPRESSION: Mild degenerative changes seen at the 1st MTP joint. DATA REPOSITORY: RADIATION DOSE DELIVERED:
== END 2024-11-18 14:29 ==
PROVIDERS: PCP Family Medicine; Visit Provider Podiatrist
DX: M79.672 Pain in left foot (principal); M21.272 Flexion deformity, left ankle and toes; M20.22 Hallux rigidus, left foot; M21.6X2 Other acquired deformities of left foot
CPT/HCPCS: 20600; 99213; J0702; J1100; 73630

== ENCOUNTER → 2024-12-16 11:17 | Outpatient (BNVA) | payer MEDICARE, SELFPAY | PROVIDERS: PCP Family Medicine; Referring Provider Family Medicine; Visit Provider Podiatrist | DX: M20.22 Hallux rigidus, left foot (principal); M21.272 Flexion deformity, left ankle and toes; M21.6X2 Other acquired deformities of left foot; M79.672 Pain in left foot | CPT/HCPCS: 99213 ==